=== PATIENT | female | born 1985 | race African-American/Black ===

== ENCOUNTER 2018-09-14 16:30 | Emergency (ER) | payer OTHER ==
[2018-09-14 16:37] VITALS: BP 121/66
[2018-09-14] MEDS ORDERED: METHOCARBAMOL 750 MG TABLET PO ONE (18:02)
--- NOTE | 2018-09-14 18:22 | ER Document Report ---
HPI - HPI Time Seen by Provider: 09/14/18 17:20 Pain Level: 5 Notes: Patient is a 33-year-old female who presents with multiple complaints after she states she fell at work yesterday. Patient reports she was pushing a heavy cart when the wheel of the cart broke causing the cart to fall on top of her. She reports that she has stiffness in her upper abdomen, left thigh and bilateral shins. She reports that she was seen by her employer's employee health department immediately after the fall. She states that she is able to ambulate without difficulty however she feels that she is having symptoms of bruising. - REPRODUCTIVE Reproductive: DENIES: : - MUSCULOSKELETAL Musculoskeletal: REPORTS: Extremity pain Past Medical History - General Information source: Patient - Social History Smoking Status: Never Smoker Chew tobacco use (# tins/day): No Frequency of alcohol use: None Drug Abuse: None Family History: None Patient has suicidal ideation: No Patient has homicidal ideation: No - Medical History Medical History: Negative Renal/ Medical History: Denies: Hx Peritoneal Dialysis Surgical Hx: Negative - Immunizations Immunizations up to date: Yes Vertical Provider Document - CONSTITUTIONAL Notes: PHYSICAL EXAMINATION: GENERAL: Well-appearing, well-nourished and in no acute distress. HEAD: Atraumatic, normocephalic. EYES: Pupils equal round extraocular movements intact, conjunctiva are normal. ENT: Nares patent NECK: Normal range of motion LUNGS: No respiratory distress Musculoskeletal: Normal range of motion NEUROLOGICAL: Normal speech, normal gait. PSYCH: Normal mood, normal affect. SKIN: Warm, Dry, normal turgor, no rashes or lesions noted. Large bruise noted to patient's left anterior thigh. - INFECTION CONTROL TRAVEL OUTSIDE OF THE [place] IN LAST 30 DAYS: No Course - Re-evaluation Re-evalutation: Patient has a large bruise noted to her left thigh otherwise physical examination is unremarkable. Patient reports that she feels "all bruised up". Patient states that her muscles feel tight. I do not feel that any imaging is indicated at this time as patient is moving all extremities without difficulty. Patient will be encouraged to take [id number] pain medications. Patient asking for muscle relaxer to be prescribed. I will prescribe her Robaxin. Work note given. - Vital Signs Vital signs: Temp Pulse Resp BP Pulse Ox 98.4 F 84 16 121/66 97 09/14/18 16:36 09/14/18 16:36 09/14/18 16:36 09/14/18 16:36 09/14/18 16:36 Discharge - Discharge Clinical Impression: Contusion Qualifiers: Encounter type: initial encounter Contusion area: thigh Laterality: left Qualified Code(s): S70.12XA - Contusion of left thigh, initial encounter Condition: Stable Disposition: HOME, SELF-CARE Additional Instructions: Contusion Your injury has resulted in a contusion -- a crushing of the deep tissues. No injury to important structures was detected during the physician's exam. Contusions vary in the amount of pain they cause, and in the length of time required for healing. Typically, the area will become bruised, and will remain painful to touch for two or three weeks. However, most patients are back to working and playing within a few days. After the initial period of rest and cold-packs, your symptoms (together with the doctor's recommendations) will determine how rapidly you can get back to full activity. Usually this means "do what feels okay, but don't do things that hurt." If re-examination was recommended, it's important to follow up as instructed. Call the doctor or return any time if pain increases, if swelling becomes severe, if you develop numbness or weakness in an injured extremity, or if any other alarming symptoms occur. Ice Apply ice packs frequently against the painful area. Many different schedules are recommended, such as "20 minutes on, 20 minutes off" or "one hour ice, two hours rest." If you need to work, you may need to go longer between ice treatments. You should plan to have the area ice packed AT LEAST one-fourth of the time. The ice should be applied over the wrap, tape, or splint, or over a layer of cloth -- not directly against the skin. Some ice bags have a built-in cloth and can be put directly on the skin. Your injured part should be elevated as much as possible over the next 48 hours. Try to keep the injury above the level of the heart. Avoid use of the injured area. Elevation and rest will decrease the swelling. Ibuprofen Ibuprofen is an excellent, safe drug for pain control. In addition, it has potent antiinflammatory effects which are beneficial, especially in the treatment of injuries, arthritis, or tendonitis. It's best to take ibuprofen with food. Persons with ulcer disease or allergy to aspirin should notify their physician of this before taking ibuprofen. Take the medication exactly as prescribed. Don't take additional doses unless instructed to do so by your doctor. If you develop wheezing, shortness of breath, hives, faintness, stomach pain, vomiting, or dark black stools, return for re-evaluation at once. The x-rays were negative for any fracture or dislocation. Please take ibuprofen [id number] or your meloxicam as directed to help with pain and inflammation. Take the muscle relaxer as prescribed. Prescriptions: Methocarbamol [Robaxin 750 mg Tablet] 750 mg PO QID #30 tablet Forms: Return to Work Referrals: [facility] [Primary Care Provider] - Follow up as needed
== END 2018-09-14 18:44 | disposition home or self-care (01) ==
LOC: ER 16:30
DX: S70.12XA Contusion of left thigh, initial encounter (principal); R10.10 Upper abdominal pain, unspecified; W22.8XXA Striking against or struck by other objects, initial encounter
CPT/HCPCS: 99282; J3490

== ENCOUNTER 2018-12-01 07:49 | Emergency (ER) | payer OTHER, MEDICAID ==
[2018-12-01 10:43] LABS: ABSOLUTE EOSINOPHILS # (AUTO) 0.1 10^3/uL (0.0-0.6); ABSOLUTE LYMPHOCYTES (AUTO) 1.5 10^3/uL (0.5-4.7); ABSOLUTE MONOCYTES (AUTO) 0.6 10^3/uL (0.1-1.4); ABSOLUTE NEUT (AUTO) 10.7 10^3/uL (1.7-8.2); BASOPHILS % (AUTO) 0.3 % (0-2); EOSINOPHILS % (AUTO) 0.4 % (0-6); HEMATOCRIT 34.1 % (36.0-47.0); HEMOGLOBIN 11.4 g/dL (12.0-15.5); LYMPHOCYTES % (AUTO) 11.5 % (13-45); MEAN CORPUSCULAR HEMOGLOBIN 29.3 pg (27.0-33.4); MEAN CORPUSCULAR HGB CONC 33.4 g/dL (32.0-36.0); MEAN CORPUSCULAR VOLUME 88 fl (80-97); MONOCYTES % (AUTO) 4.5 % (3-13); PLATELET COUNT 333 10^3/uL (150-450); RED BLOOD COUNT 3.88 10^6/uL (3.72-5.28); RED CELL DISTRIBUTION WIDTH 13.8 % (11.5-14.0); SEGMENTED NEUTROPHILS % (AUTO) 83.3 % (42-78); TOTAL CELLS COUNTED % (AUTO) 100 %; WHITE BLOOD COUNT 12.9 10^3/uL (4.0-10.5)
--- NOTE | 2018-12-01 10:44 | ER Document Report ---
ED General - General Chief Complaint: Vag Bleeding, +preg <12wks Stated Complaint: SPOTTING/ABDOMINAL PAIN Time Seen by Provider: 12/01/18 10:33 Primary Care Provider: MEKA LE [NO LOCAL MD] - Follow up in 1 week Mode of Arrival: Ambulatory Information source: Patient Notes: Patient presents this morning with complaints of spotting. Patient reports she is approximately 8 weeks . Reports when she wiped she noticed blood on the tissue paper twice this morning. Denies other symptoms such as fever or diarrhea. Denies abdominal pain although she reports when she stands up she will have a sharp pain when she walks in her right lower quad. Patient also reports she is been vomiting but that is normal for her morning . She is G4, P3. Denies trauma. Reports that she feels fine. TRAVEL OUTSIDE OF THE [place] IN LAST 30 DAYS: No - HPI Onset: This morning Onset/Duration: Sudden Quality of pain: No pain Severity: None Pain Level: Denies Associated symptoms: None Exacerbated by: Denies Relieved by: Denies Similar symptoms previously: No Recently seen / treated by doctor: No - Related Data Allergies/Adverse Reactions: No Known Allergies Allergy (Verified 09/14/18 16:34) Past Medical History - General Information source: Patient Last Menstrual Period: 09/30/18 - Social History Smoking Status: Current Every Day Smoker Chew tobacco use (# tins/day): No Frequency of alcohol use: None Drug Abuse: None Occupation: [employer] [place] Lives with: Family Family History: None Patient has suicidal ideation: No Patient has homicidal ideation: No - Medical History Medical History: Negative Renal/ Medical History: Denies: Hx Peritoneal Dialysis Psychiatric Medical History: Reports: Hx Depression Surgical Hx: Negative - Immunizations Immunizations up to date: Yes Review of Systems - Review of Systems Notes: Review HPI for review of systems., All other systems negative Physical Exam - Vital signs Vitals: Temp Pulse Resp BP Pulse Ox 98.3 F 86 20 124/71 99 12/01/18 07:54 12/01/18 07:54 12/01/18 07:54 12/01/18 07:54 12/01/18 07:54 - Notes Notes: PHYSICAL EXAMINATION: GENERAL: Well-appearing and in no acute distress HEAD: Atraumatic, normocephalic. EYES: extraocular movements intact, sclera anicteric, conjunctiva are normal. ENT: nares patent, Moist mucous membranes. NECK: Normal range of motion, supple without lymphadenopathy LUNGS: CTAB and equal. No wheezes rales or rhonchi. HEART: Regular rate and rhythm without murmurs ABDOMEN: Soft, round, no pain on palpation, no tenderness. No guarding, no rebou nd BACK: Denies back pain EXTREMITIES: Normal range of motion, NEUROLOGICAL: Cranial nerves grossly intact. PSYCH: Normal mood, normal affect. SKIN: Warm, Dry, normal turgor, no rashes or lesions noted Course - Re-evaluation Re-evalutation: 12/01/18 10:44 Labs still pending. Patient was instructed on ultrasound ordered. Patient is asking if she will be out of here within the next 20 minutes. I instructed her that she would not. Patient was advised of risk of bleeding without diagnosis. She verbalized understanding. Patient is deciding whether she will stay or not. Nurse aware. 12/01/18 Labs were unremarkable ultrasound showed a 9-week 2-day intrauterine . Patient was instructed on ultrasound reports also instructed on the importance of follow-up for hCG on Tuesday. She verbalized understanding to all information denies vaginal bleeding at this time. Denies abdominal pain. Discharged home. She has an appointment with her INSTRUCTIONAL WRITER on December 11. Dictation of this chart was performed using voice recognition software; therefore, there may be some unintended grammatical errors. - Vital Signs Vital signs: Temp Pulse Resp BP Pulse Ox 98.4 F 86 15 107/55 L 99 12/01/18 12:53 12/01/18 12:53 12/01/18 12:53 12/01/18 12:53 12/01/18 12:53 - Laboratory Result Diagrams: 12/01/18 10:30 12/01/18 10:30 Laboratory results interpreted by me: 12/01/18 12/01/18 10:30 10:30 WBC 12.9 H Hgb 11.4 L Hct 34.1 L Seg Neutrophils % 83.3 H Lymphocytes % 11.5 L Absolute Neutrophils 10.7 H Beta HCG, Quant 582005.00 H - Diagnostic Test Radiology reviewed: Image reviewed, Reports reviewed Discharge - Discharge Clinical Impression: , Vaginal bleeding Condition: Stable Disposition: HOME, SELF-CARE Additional Instructions: *You have been evaluated for vaginal bleeding *Your ultrasound shows that you have a 9 weeks 2 days living intrauterine . *Follow-up on Tuesday, December 03 for repeat hCG. Call [phone] Tuesday through 01-21 for results. *Monitor the bleeding *Follow up with your WAREHOUSE RECEIVING CLERK as scheduled *Avoid sexual intercourse until follow up *Return to ED for worsening condition, changes, needs Forms: Follow-Up Laboratory Testing Referrals: [facility] [NO LOCAL MD] - Follow up in 1 week
[2018-12-01 11:04] LABS: ALANINE AMINOTRANSFERASE 28 U/L (9-52); ALBUMIN 3.8 g/dL (3.5-5.0); ALKALINE PHOSPHATASE 84 U/L (38-126); ANION GAP 8 (5-19); ASPARTATE AMINO TRANSFERASE 19 U/L (14-36); BILIRUBIN,DIRECT 0.2 mg/dL (0.0-0.4); BILIRUBIN,TOTAL 0.4 mg/dL (0.2-1.3); BLOOD UREA NITROGEN 11 mg/dL (7-20); CALCIUM 9.6 mg/dL (8.4-10.2); CARBON DIOXIDE 26 mmol/L (22-30); CHLORIDE 103 mmol/L (98-107); GLUCOSE 91 mg/dL (75-110); POTASSIUM 3.8 mmol/L (3.6-5.0); SODIUM 137.2 mmol/L (137-145); TOTAL PROTEIN 6.8 g/dL (6.3-8.2)
--- NOTE | 2018-12-01 12:04 | RADIOLOGY REPORT (SQ) ---
EXAM DESCRIPTION: U/S OB TRANSVAGINAL W/O DOP COMPLETED DATE/TIME: 12/01/2018 11:53 am REASON FOR STUDY: preg, vag bleed COMPARISON: None. TECHNIQUE: Transvaginal static and realtime grayscale images acquired of the pelvis. Additional gonzales cted spectral and color Doppler images recorded. All images stored on PACs. bHCG: Pending at time of dictation. CLINICAL DATES: 8 weeks 6 days. LIMITATIONS: None. FINDINGS: FETUS: Single Living intrauterine . ULTRASOUND EGA: 9 weeks 2 days. ULTRASOUND YURIDIA: 07/04/2019 EFW: Not applicable less than 20 weeks. CRL: 2.48 cm. FHR: 180 beats per minute. SURVEY: Too early to assess. AMNIOTIC FLUID: Adequate amount. PLACENTA: Not yet developed due to early gestation. SUBCHORIONIC BLEED: No. SIZE OF BLEED: Not applicable. UTERUS: No masses. No anomalies. CERVICAL LENGTH: 3.1 cm. Closed. RIGHT ADNEXA: Ovary not identified due to poor acoustical window. No adnexal free fluid. No adnexal masses. LEFT ADNEXA: Normal ovary with normal vascular flow. No adnexal free fluid. No adnexal masses. FREE FLUID: There is a trace amount of free fluid in the cul de sac. OTHER: No other significant finding. IMPRESSION: LIVING INTRAUTERINE . EGA 9 WEEKS 2 DAYS. Trimester of : First - 0 to 13 weeks. TECHNICAL DOCUMENTATION: JOB ID: [id number] [employer]- All Rights Reserved rev Reading location - IP/workstation name: [email or web address]
[2018-12-01] MEDS ORDERED: ONDANSETRON 4 MG TAB.RAPDIS PO ONE (13:04)
[2018-12-01 13:09] VITALS: BP 107/55
== END 2018-12-01 13:09 | disposition home or self-care (01) ==
LOC: ER 07:49
DX: O20.9 Hemorrhage in early pregnancy, unspecified (principal); O21.9 Vomiting of pregnancy, unspecified; O26.891 Other specified pregnancy related conditions, first trimester; R10.31 Right lower quadrant pain; O99.331 Smoking (tobacco) complicating pregnancy, first trimester; Z3A.09 9 weeks gestation of pregnancy
CPT/HCPCS: 99284; 86900; 86901; 36415; 84702; 85025; 80053; 76817; S0119

== ENCOUNTER 2018-12-25 13:34 | Emergency (ER) | payer OTHER, MEDICAID ==
[2018-12-25] MEDS ORDERED: RINGERS SOLUTION,LACTATED 1,000 ML IV ONE (14:10)
[2018-12-25] MEDS ORDERED: PYRIDOXINE HCL INJ 100 MG/1 ML VIAL IM ONE (14:11)
[2018-12-25] MEDS ORDERED: METOCLOPRAMIDE HCL 10 MG TABLET PO ONE (14:11)
--- NOTE | 2018-12-25 14:13 | ER Document Report ---
ED Medical Screen (RME) - General Chief Complaint: Vomiting Stated Complaint: VOMITING Time Seen by Provider: 12/25/18 14:07 Primary Care Provider: FARIBA BAEZ DO [Primary Care Provider] - Follow up as needed Mode of Arrival: Ambulatory Information source: Patient Notes: 33-year-old female presents to ED for complaint of nausea and vomiting all weekend. She is 12 weeks last ultrasound was about 2 weeks ago she is 4 para 3. She states she has had nausea and vomiting and needed to come into the emergency room to get IV fluids with her first 3 pregnancies. States she smokes about 3 cigarettes a day works at [employer] and lives with her significant other and children. She states other than her nausea and vomiting with she has no other medical history. Patient is alert and oriented respirations regular and unlabored speaking in full sentences. I have written an order for vitamin B6 IM and Reglan as well as IV fluids. I have greeted and performed a rapid initial assessment of this patient. A comprehensive ED assessment and evaluation of the patient, analysis of test results and completion of medical decision making process will be conducted by an additional ED providers. Dictation of this chart was performed using voice recognition software; therefore, there may be some unintended grammatical errors. TRAVEL OUTSIDE OF THE [place] IN LAST 30 DAYS: No - Related Data Allergies/Adverse Reactions: No Known Allergies Allergy (Verified 12/25/18 13:35) Past Medical History Renal/ Medical History: Denies: Hx Peritoneal Dialysis Psychiatric Medical History: Reports: Hx Depression - Immunizations Immunizations up to date: Yes Physical Exam - Vital signs Vitals: Temp Pulse Resp BP Pulse Ox 98.0 F 113 H 20 144/69 H 97 12/25/18 13:40 12/25/18 13:40 12/25/18 13:40 12/25/18 13:40 12/25/18 13:40 Course - Vital Signs Vital signs: Temp Pulse Resp BP Pulse Ox 98.0 F 113 H 20 144/69 H 97 12/25/18 13:40 12/25/18 13:40 12/25/18 13:40 12/25/18 13:40 12/25/18 13:40 Doctor's Discharge - Discharge Referrals: FARIBA BAEZ DO [Primary Care Provider] - Follow up as needed
--- NOTE | 2018-12-25 14:54 | ER Document Report ---
Addendum entered and electronically signed by VIOLET RUSH PA-C 12/25/18 18:16: Discharge - Discharge Clinical Impression: Hyperemesis gravidarum, Dehydration, Nausea & vomiting Condition: Stable Disposition: HOME, SELF-CARE Instructions: Hyperemesis Gravidarum ([facility]) Additional Instructions: FOLLOW UP WITH OB TOMORROW. TAKE MEDICINE PRESCRIBED. RETURN IF WORSE. PUSH FLUIDS. BLAND DIET. Prescriptions: Doxylamine Succinate/Vit B6 [Ralph Boswell 10-10 mg Tablet] 1 each PO BID #30 tablet. Referrals: FARIBA BAEZ DO [Primary Care Provider] - Follow up as needed Original Note: ED General - General Chief Complaint: Vomiting Stated Complaint: VOMITING Time Seen by Provider: 12/25/18 14:07 Primary Care Provider: FARIBA BAEZ DO [Primary Care Provider] - Follow up as needed Mode of Arrival: Ambulatory TRAVEL OUTSIDE OF THE [place] IN LAST 30 DAYS: No - HPI Notes: 33-year-old female, G4, P3 12 weeks , to the emergency department with complaints of nausea and vomiting that has gotten progressively worse over the weekend. States that she has a history of hyperemesis gravidarum and this feels similar. States she is unable to hold any food or liquids down. In prior she has had to come to the emergency department several times for IV fluids. She states that she is seen at [facility]. Has had a confirmed IUP with this by ultrasound 2 weeks ago. She denies any vaginal bleeding. She denies any pelvic pain. She denies any urinary complaints, vaginal discharge, fevers, chills. She states that her SENIOR NET WEB DEVELOPER did write her for antiemetics which she took to [facility]. [facility] did not have the medicine and has not called her to say that the medicine has come in. That was 2 weeks ago. - Related Data Allergies/Adverse Reactions: No Known Allergies Allergy (Verified 12/25/18 13:35) Past Medical History - General Information source: Patient - Social History Smoking Status: Current Every Day Smoker Frequency of alcohol use: None Drug Abuse: None Family History: None Patient has suicidal ideation: No Patient has homicidal ideation: No Renal/ Medical History: Denies: Hx Peritoneal Dialysis Psychiatric Medical History: Reports: Hx Depression - Immunizations Immunizations up to date: Yes Review of Systems - Review of Systems Constitutional: Malaise. denies: Chills, Fever EENT: No symptoms reported Cardiovascular: denies: Chest pain, Palpitations, Dizziness, Lightheaded Respiratory: denies: Cough, Short of breath Gastrointestinal: Nausea, Vomiting. denies: Abdominal pain, Diarrhea Genitourinary: No symptoms reported Female Genitourinary: . denies: Heavy/abnormal periods, Irregular period, Vaginal discharge, Vaginal bleeding, Painful intercourse Musculoskeletal: No symptoms reported Skin: No symptoms reported Hematologic/Lymphatic: No symptoms reported Neurological/Psychological: No symptoms reported Physical Exam - Vital signs Vitals: Temp Pulse Resp BP Pulse Ox 98.0 F 113 H 20 144/69 H 97 12/25/18 13:40 12/25/18 13:40 12/25/18 13:40 12/25/18 13:40 12/25/18 13:40 Interpretation: Hypertensive, Tachycardic - General General appearance: Appears well In distress: Mild - One episode of dry heaving while in the room - HEENT Head: Normocephalic, Atraumatic Eyes: Normal Pupils: PERRL - Respiratory Respiratory status: No respiratory distress Chest status: Nontender Breath sounds: Normal Chest palpation: Normal - Cardiovascular Rhythm: Regular Heart sounds: Normal auscultation Murmur: No - Abdominal Inspection: Normal Distension: No distension Bowel sounds: Normal Tenderness: Nontender Organomegaly: No organomegaly - Back Back: Normal, Nontender - Extremities General upper extremity: Normal inspection, Nontender, Normal color, Normal ROM, Normal temperature General lower extremity: Normal inspection, Nontender, Normal color, Normal ROM, Normal temperature, Normal weight bearing. No: Mia's sign - Neurological Neuro grossly intact: Yes Cognition: Normal Orientation: AAOx4 Lakhwinder Coma Scale Eye Opening: Spontaneous [place] Coma Scale Verbal: Oriented Lakhwinder Coma Scale Motor: Obeys Commands Lakhwinder Coma Scale Total: 15 Speech: Normal Motor strength normal: LUE, RUE, LLE, RLE Sensory: Normal - Psychological Associated symptoms: Normal affect, Normal mood - Skin Skin Temperature: Warm Skin Moisture: Dry Skin Color: Normal Course - Re-evaluation Re-evalutation: 12/25/18 18:09 patient has done well here in the ER tonight. Noted UA which does illustrate dehydration. She has had a couple episodes of dry heaving at her arrival, but after medicine she has done well. She has been eating and feeling better. No further episodes of vomiting. Suspect that the WBC of 13 is related to her vomiting. Will discharge home with Ralph. patient agrees with the plan. - Vital Signs Vital signs: Temp Pulse Resp BP Pulse Ox 98.0 F 84 16 99/52 L 100 12/25/18 13:40 12/25/18 17:18 12/25/18 17:18 12/25/18 17:18 12/25/18 17:18 - Laboratory Result Diagrams: 12/25/18 14:44 12/25/18 14:44 Laboratory results interpreted by me: 12/25/18 12/25/18 12/25/18 14:44 14:44 15:54 WBC 13.6 H Hgb 11.5 L Hct 34.8 L Seg Neutrophils % 85.4 H Lymphocytes % 11.1 L Absolute Neutrophils 11.6 H Sodium 135.9 L AST 38 H Beta HCG, Quant 504067.00 H Urine Protein 30 H Urine Ketones 300 H Urine Bilirubin SMALL H Urine Urobilinogen 2.0 H - Transfer of Care Notes: 12/25/18 18:11 Impression: Hyperemesis gravidarum, dehydration. Patient tolerating PO here. Has been given two bags of fluids and has done well. Will discharge home and have her follow with her OB tomorrow. No vaginal bleeding, she has a non tender abdomen on repeat abdominal exam upon discharge. Patient agrees with the plan. Discharge - Discharge Clinical Impression: Hyperemesis gravidarum, Dehydration, Nausea & vomiting Condition: Stable Disposition: HOME, SELF-CARE Instructions: Hyperemesis Gravidarum ([facility]) Additional Instructions: FOLLOW UP WITH OB TOMORROW. TAKE MEDICINE PRESCRIBED. RETURN IF WORSE. PUSH FLUIDS. BLAND DIET. Prescriptions: Doxylamine Succinate/Vit B6 [Ralph Boswell 10-10 mg Tablet] 1 each PO BID #30 tablet. Referrals: FARIBA BAEZ DO [Primary Care Provider] - Follow up as needed
[2018-12-25 15:18] LABS: ALANINE AMINOTRANSFERASE 40 U/L (9-52); ALKALINE PHOSPHATASE 90 U/L (38-126); ANION GAP 9 (5-19); ASPARTATE AMINO TRANSFERASE 38 U/L (14-36); BILIRUBIN,DIRECT 0.3 mg/dL (0.0-0.4); BILIRUBIN,TOTAL 0.5 mg/dL (0.2-1.3); BLOOD UREA NITROGEN 14 mg/dL (7-20); CALCIUM 9.4 mg/dL (8.4-10.2); CARBON DIOXIDE 24 mmol/L (22-30); CHLORIDE 103 mmol/L (98-107); GLUCOSE 86 mg/dL (75-110); SODIUM 135.9 mmol/L (137-145); TOTAL PROTEIN 7.2 g/dL (6.3-8.2)
[2018-12-25 15:21] LABS: POTASSIUM 3.9 mmol/L (3.6-5.0)
[2018-12-25 16:11] LABS: APPEARANCE,URINE CLEAR; BILIRUBIN,URINE SMALL (NEGATIVE); COLOR,URINE AMBER; GLUCOSE, URINE NEGATIVE (NEGATIVE); KETONES,URINE 300 mg/dL (NEGATIVE); LEUKOCYTE ESTERASE,URINE NEGATIVE (NEGATIVE); NITRITE,URINE NEGATIVE (NEGATIVE); PROTEIN,URINE 30 mg/dL (NEGATIVE)
[2018-12-25 16:19] LABS: URINE SPECIFIC GRAVITY 1.031
[2018-12-25 16:37] LABS: ABSOLUTE LYMPHOCYTES (AUTO) 1.5 10^3/uL (0.5-4.7); ABSOLUTE MONOCYTES (AUTO) 0.4 10^3/uL (0.1-1.4); ABSOLUTE NEUT (AUTO) 11.6 10^3/uL (1.7-8.2); BASOPHILS % (AUTO) 0.2 % (0-2); EOSINOPHILS % (AUTO) 0.1 % (0-6); HEMATOCRIT 34.8 % (36.0-47.0); HEMOGLOBIN 11.5 g/dL (12.0-15.5); LYMPHOCYTES % (AUTO) 11.1 % (13-45); MEAN CORPUSCULAR HEMOGLOBIN 29.3 pg (27.0-33.4); MEAN CORPUSCULAR HGB CONC 33.1 g/dL (32.0-36.0); MEAN CORPUSCULAR VOLUME 89 fl (80-97); MONOCYTES % (AUTO) 3.2 % (3-13); PLATELET COUNT 359 10^3/uL (150-450); RED BLOOD COUNT 3.93 10^6/uL (3.72-5.28); RED CELL DISTRIBUTION WIDTH 13.9 % (11.5-14.0); SEGMENTED NEUTROPHILS % (AUTO) 85.4 % (42-78); TOTAL CELLS COUNTED % (AUTO) 100 %; WHITE BLOOD COUNT 13.6 10^3/uL (4.0-10.5)
[2018-12-25] MEDS ORDERED: NORMAL SALINE 1000 ML 1,000 ML IV ONE (16:42)
[2018-12-25] MEDS ORDERED: ONDANSETRON HCL INJ/PF 4 MG/2 ML SDV IV ONE (16:44)
[2018-12-25 19:11] VITALS: BP 112/47
== END 2018-12-25 19:22 | disposition home or self-care (01) ==
LOC: ER 13:34
DX: O21.1 Hyperemesis gravidarum with metabolic disturbance (principal); O99.331 Smoking (tobacco) complicating pregnancy, first trimester; F17.200 Nicotine dependence, unspecified, uncomplicated; Z3A.12 12 weeks gestation of pregnancy
CPT/HCPCS: 99284; 96361; 96374; 96375; 36415; 84702; 85025; 80053; 81001; J3415; J2405; J7030; J7120

== ENCOUNTER 2019-03-06 10:58 | Emergency (ER) | payer OTHER, MEDICAID ==
[2019-03-06 11:08] VITALS: BP 124/77
[2019-03-06] MEDS ORDERED: ACETAMINOPHEN 325 MG TABLET PO ONE (11:32)
[2019-03-06] MEDS ORDERED: PROMETHAZINE HCL 25 MG TABLET PO ONE (11:32)
--- NOTE | 2019-03-06 11:34 | ER Document Report ---
ED Medical Screen (RME) - General Chief Complaint: Abdominal Pain Stated Complaint: VOMITING/NAUSEA Time Seen by Provider: 03/06/19 11:28 Primary Care Provider: FARIBA BAEZ DO [Primary Care Provider] - Follow up as needed Mode of Arrival: Ambulatory Information source: Patient Notes: This 34-year-old female who is 22 weeks G4, P3 presents emergency department with complaints of vomiting all the time. She reports she is vomited this whole . She was at work today and vomited and they stressed her out. She reports she has a history of PTSD. She now complains of lower back pain. Denies pain with void. Reports her [employer] REVENUE OFFICER has given her Phenergan. Last time she took Phenergan was last night. She denies vaginal discharge. She denies abdominal cramping. She denies vaginal bleeding. Dictation of this chart was performed using voice recognition software; therefore, there may be some unintended grammatical errors. I have greeted and performed a rapid initial assessment of this patient. A comprehensive ED assessment and evaluation of the patient, analysis of test results and completion of the medical decision making process will be conducted by additional ED providers. TRAVEL OUTSIDE OF THE [place] IN LAST 30 DAYS: No - Related Data Allergies/Adverse Reactions: No Known Allergies Allergy (Verified 03/06/19 10:58) Past Medical History - Social History Frequency of alcohol use: None Drug Abuse: None Renal/ Medical History: Denies: Hx Peritoneal Dialysis Psychiatric Medical History: Reports: Hx Depression - Immunizations Immunizations up to date: Yes Physical Exam - Vital signs Vitals: Temp Pulse Resp BP Pulse Ox 98.5 F 100 18 124/77 96 03/06/19 11:08 03/06/19 11:08 03/06/19 11:08 03/06/19 11:08 03/06/19 11:08 Course - Vital Signs Vital signs: Temp Pulse Resp BP Pulse Ox 98.5 F 100 18 124/77 96 03/06/19 11:08 03/06/19 11:08 03/06/19 11:08 03/06/19 11:08 03/06/19 11:08 Doctor's Discharge - Discharge Referrals: FARIBA BAEZ DO [Primary Care Provider] - Follow up as needed
[2019-03-06 11:52] LABS: ABSOLUTE BASOPHILS # (AUTO) 0.1 10^3/uL (0.0-0.2); ABSOLUTE EOSINOPHILS # (AUTO) 0.1 10^3/uL (0.0-0.6); ABSOLUTE LYMPHOCYTES (AUTO) 1.4 10^3/uL (0.5-4.7); ABSOLUTE MONOCYTES (AUTO) 0.4 10^3/uL (0.1-1.4); ABSOLUTE NEUT (AUTO) 14.2 10^3/uL (1.7-8.2); BASOPHILS % (AUTO) 0.5 % (0-2); EOSINOPHILS % (AUTO) 0.3 % (0-6); HEMATOCRIT 32.3 % (36.0-47.0); HEMOGLOBIN 10.8 g/dL (12.0-15.5); LYMPHOCYTES % (AUTO) 8.6 % (13-45); MEAN CORPUSCULAR HEMOGLOBIN 28.8 pg (27.0-33.4); MEAN CORPUSCULAR HGB CONC 33.4 g/dL (32.0-36.0); MEAN CORPUSCULAR VOLUME 86 fl (80-97); MONOCYTES % (AUTO) 2.7 % (3-13); PLATELET COUNT 330 10^3/uL (150-450); RED BLOOD COUNT 3.75 10^6/uL (3.72-5.28); RED CELL DISTRIBUTION WIDTH 15.4 % (11.5-14.0); SEGMENTED NEUTROPHILS % (AUTO) 87.9 % (42-78); TOTAL CELLS COUNTED % (AUTO) 100 %; WHITE BLOOD COUNT 16.1 10^3/uL (4.0-10.5)
[2019-03-06 12:09] LABS: APPEARANCE,URINE SLIGHTLY-CLOUDY; BILIRUBIN,URINE NEGATIVE (NEGATIVE); COLOR,URINE AMBER; GLUCOSE, URINE NEGATIVE (NEGATIVE); KETONES,URINE 20 mg/dL (NEGATIVE); LEUKOCYTE ESTERASE,URINE NEGATIVE (NEGATIVE); NITRITE,URINE NEGATIVE (NEGATIVE); PROTEIN,URINE 30 mg/dL (NEGATIVE); URINE SPECIFIC GRAVITY 1.038
[2019-03-06 12:14] LABS: ALBUMIN 3.8 g/dL (3.5-5.0); ALKALINE PHOSPHATASE 90 U/L (38-126); ANION GAP 9 (5-19); ASPARTATE AMINO TRANSFERASE 41 U/L (14-36); BILIRUBIN,DIRECT 0.1 mg/dL (0.0-0.4); BILIRUBIN,TOTAL 0.3 mg/dL (0.2-1.3); BLOOD UREA NITROGEN 13 mg/dL (7-20); CARBON DIOXIDE 24 mmol/L (22-30); CHLORIDE 102 mmol/L (98-107); GLUCOSE 116 mg/dL (75-110); POTASSIUM 3.7 mmol/L (3.6-5.0); TOTAL PROTEIN 6.7 g/dL (6.3-8.2)
[2019-03-06] MEDS ORDERED: NORMAL SALINE 1000 ML 1,000 ML IV ONE (13:30)
[2019-03-06] MEDS ORDERED: METOCLOPRAMIDE HCL INJ/PF 10 MG/2 ML SDV IV ONE (13:30)
--- NOTE | 2019-03-06 13:42 | ER Document Report ---
ED General - General Chief Complaint: Abdominal Pain Stated Complaint: VOMITING/NAUSEA Time Seen by Provider: 03/06/19 11:28 Primary Care Provider: FARIBA BAEZ DO [Primary Care Provider] - Follow up as needed Mode of Arrival: Ambulatory Information source: Patient TRAVEL OUTSIDE OF THE [place] IN LAST 30 DAYS: No - HPI Notes: Patient comes in complaining of vomiting abdominal pain and anxiety. She states she has been vomiting throughout her and she continues to vomit. She states today she is unable to keep down water. She states at work today she vomited several times and urinated on herself while vomiting. She states the people at work Trying to tell her to continue work which made her upset and caused her to have an anxiety attack. She also states for the last 2 to 3 days she has had lower abdominal cramping pain that feels like contractions. It is intermittent. Nothing makes it better or worse. It does not radiate. It is greater on the right lower side. She denies any vaginal discharge or bleeding. She is not concerned about sexually transmitted disease. She is had no fevers. No problems with stool. - Related Data Allergies/Adverse Reactions: No Known Allergies Allergy (Verified 03/06/19 10:58) Past Medical History - General Information source: Patient - Social History Smoking Status: Current Every Day Smoker Frequency of alcohol use: None Drug Abuse: None Family History: None Patient has suicidal ideation: No Patient has homicidal ideation: No Renal/ Medical History: Denies: Hx Peritoneal Dialysis Psychiatric Medical History: Reports: Hx Depression - Immunizations Immunizations up to date: Yes Review of Systems - Review of Systems Constitutional: Malaise, Weakness Cardiovascular: denies: Chest pain, Palpitations Respiratory: denies: Cough, Short of breath Gastrointestinal: Abdominal pain, Nausea, Vomiting -: Yes All other systems reviewed and negative Physical Exam - Vital signs Vitals: Temp Pulse Resp BP Pulse Ox 98.5 F 100 18 124/77 96 03/06/19 11:08 03/06/19 11:08 03/06/19 11:08 03/06/19 11:08 03/06/19 11:08 Interpretation: Normal - General General appearance: Appears well, Alert - HEENT Head: Normocephalic, Atraumatic Eyes: Normal Pupils: PERRL - Respiratory Respiratory status: No respiratory distress Chest status: Nontender Breath sounds: Normal Chest palpation: Normal - Cardiovascular Rhythm: Regular Heart sounds: Normal auscultation Murmur: No - Abdominal Inspection: Normal Distension: No distension Bowel sounds: Normal Tenderness: Tender - Patient has some mild to moderate tenderness to palpation of the right lower quadrant. No masses are appreciated. She does have a gravid uterus that other than the right lower aspect seems nontender. She does not have surgical abdominal signs such as rebound or guarding. She definitely does not have peritonitis on exam. Organomegaly: No organomegaly - Back Back: Normal, Nontender - Extremities General upper extremity: Normal inspection, Nontender, Normal color, Normal ROM, Normal temperature General lower extremity: Normal inspection, Nontender, Normal color, Normal ROM, Normal temperature, Normal weight bearing. No: Mia's sign - Neurological Neuro grossly intact: Yes Cognition: Normal Orientation: AAOx4 [place] Coma Scale Eye Opening: Spontaneous [place] Coma Scale Verbal: Oriented [place] Coma Scale Motor: Obeys Commands [place] Coma Scale Total: 15 Speech: Normal Motor strength normal: LUE, RUE, LLE, RLE Sensory: Normal - Psychological Associated symptoms: Normal affect, Normal mood - Skin Skin Temperature: Warm Skin Moisture: Dry Skin Color: Normal Course - Re-evaluation Re-evalutation: 03/06/19 13:38 Patient presents with vomiting and abdominal pain. She states abdominal pain feels like contractions. However this pain is in the right lower quadrant and patient does have a white blood cell count of 16.8. I feel that appendicitis is unlikely but cannot be ruled out at this time. I think the patient warrants evaluation on the obstetrics floor with serial exams. She definitely does not h ave peritonitis or a surgical abdomen at this point. No evidence of urinary tract infection. - Vital Signs Vital signs: Temp Pulse Resp BP Pulse Ox 98.5 F 100 18 124/77 96 03/06/19 11:08 03/06/19 11:08 03/06/19 11:08 03/06/19 11:08 03/06/19 11:08 - Laboratory Result Diagrams: 03/06/19 11:40 03/06/19 11:40 Laboratory results interpreted by me: 03/06/19 03/06/19 03/06/19 11:40 11:40 11:40 WBC 16.1 H Hgb 10.8 L Hct 32.3 L RDW 15.4 H Lymph % (Auto) 8.6 L [place] % (Auto) 2.7 L Absolute Neuts (auto) 14.2 H Seg Neutrophils % 87.9 H Sodium 135.1 L Glucose 116 H AST 41 H Urine Protein 30 H Urine Ketones 20 H Urine Urobilinogen 4.0 H 03/06/19 13:38 Laboratory 03/06/19 03/06/19 03/06/19 11:40 11:40 11:40 WBC 16.1 H RBC 3.75 Hgb 10.8 L Hct 32.3 L MCV 86 MCH 28.8 MCHC 33.4 RDW 15.4 H Plt Count 330 Lymph % (Auto) 8.6 L [place] % (Auto) 2.7 L Eos % (Auto) 0.3 Baso % (Auto) 0.5 Absolute Neuts (auto) 14.2 H Absolute Lymphs (auto) 1.4 Absolute Monos (auto) 0.4 Absolute Eos (auto) 0.1 Absolute Basos (auto) 0.1 Seg Neutrophils % 87.9 H Sodium 135.1 L Potassium 3.7 Chloride 102 Carbon Dioxide 24 Anion Gap 9 BUN 13 Creatinine 0.73 Est GFR ( Amer) > 60 Est GFR (MDRD) Non-Af > 60 Glucose 116 H Calcium 9.0 Total Bilirubin 0.3 Direct Bilirubin 0.1 Neonat Total Bilirubin Not Reportable Neonat Direct Bilirubin Not Reportable Neonat Indirect Bili Not Reportable AST 41 H ALT 31 Alkaline Phosphatase 90 Total Protein 6.7 Albumin 3.8 Urine Color HAVEN Urine Appearance SLIGHTLY-CLOUDY Urine pH 5.0 Ur Specific [place] 1.038 Urine Protein 30 H Urine Glucose (UA) NEGATIVE Urine Ketones 20 H Urine Blood NEGATIVE Urine Nitrite NEGATIVE Urine Bilirubin NEGATIVE Urine Urobilinogen 4.0 H Ur Leukocyte Esterase NEGATIVE Urine WBC (Auto) 3 Urine RBC (Auto) 0 Squamous Epi Cells Auto 5 Urine Mucus (Auto) MANY Urine Ascorbic Acid NEGATIVE Discharge - Discharge Clinical Impression: Abdominal pain affecting Condition: Stable Disposition: LABOR CHECK Admitting Provider: [facility] - Dr. Villarreal Unit Admitted: Labor and Delivery Instructions: Abdominal Pain ([facility]) Additional Instructions: go straight to Labor and Delivery to see Dr. Villarreal Referrals: INNA VILLARREAL MD [ACTIVE STAFF] - Follow up as needed (see dr villarreal today)
== END 2019-03-06 15:32 | disposition admitted as inpatient to this hospital (09) ==
LOC: ER 10:58
DX: O26.892 Other specified pregnancy related conditions, second trimester (principal); R10.31 Right lower quadrant pain; R10.813 Right lower quadrant abdominal tenderness; R32 Unspecified urinary incontinence; R53.1 Weakness; O21.2 Late vomiting of pregnancy; O99.342 Other mental disorders complicating pregnancy, second trimester; F41.9 Anxiety disorder, unspecified; O99.332 Smoking (tobacco) complicating pregnancy, second trimester; F17.200 Nicotine dependence, unspecified, uncomplicated; O26.812 Pregnancy related exhaustion and fatigue, second trimester; Z3A.22 22 weeks gestation of pregnancy
CPT/HCPCS: 99284; 96361; 96374; 36415; 85025; 80053; 81001; J2765; J7030

== ENCOUNTER 2019-03-06 15:20 | Outpatient (CLI) | payer OTHER, MEDICAID ==
[2019-03-06 16:27] LABS: BACTERIA (WET MOUNT) 4+ BACTERIA SEEN; EPITHELIALS (WET MOUNT) 4+ EPITHELIALS SEEN; T.VAGINALIS (WET MOUNT) NO TRICHOMONAS SEEN; WBCS (WET MOUNT) 1+ WBCS SEEN; YEAST (WET MOUNT) NO YEAST SEEN
[2019-03-06 16:32] LABS: URINE AMPHETAMINES SCREEN NEGATIVE; URINE BARBITURATES SCREEN NEGATIVE; URINE BENZODIAZEPINES SCREEN NEGATIVE; URINE COCAINE SCREEN NEGATIVE; URINE MARIJUANA (THC) SCREEN NEGATIVE; URINE METHADONE SCREEN NEGATIVE; URINE PHENCYCLIDINE SCREEN NEGATIVE
--- NOTE | 2019-03-06 16:54 | RADIOLOGY REPORT (SQ) ---
EXAM DESCRIPTION: U/S OB LIMITED COMPLETED DATE/TIME: 03/06/2019 4:44 pm REASON FOR STUDY: 23 wks, abdomina pain COMPARISON: 12/01/2018 TECHNIQUE: Limited transabdominal grayscale ultrasound for evaluation of specific requested obstetri carlos parameters. LIMITATIONS: None. FINDINGS: CERVICAL LENGTH: 3.2 cm. Closed. LVP: 4.0 cm. FHR: 143 beats per minute. PRESENTATION: Cephalic. PLACENTA: Posterior in location. ANATOMY: Not assessed OTHER: No other significant findings. IMPRESSION: LIMITED OBSTETRICAL ULTRASOUND WITH MEASURED PARAMETERS DELINEATED ABOVE. Trimester of : Second trimester - 13 weeks 1 day to 27 weeks 6 days. TECHNICAL DOCUMENTATION: JOB ID: [id number] [employer]- All Rights Reserved Reading location - IP/workstation name: [email or web address]
--- NOTE | 2019-03-06 17:19 | RADIOLOGY REPORT (SQ) ---
EXAM DESCRIPTION: MRI ABDOMEN WITHOUT COMPLETED DATE/TIME: 03/06/2019 5:01 pm REASON FOR STUDY: 23 weeks, r/o appendicitis COMPARISON: None. TECHNIQUE: Multiplanar multisequence imaging performed without contrast including sagittal, axial an d coronal T2, axial T1 and axial gradient fat sat T1. CONTRAST TYPE AND DOSE: None. RENAL FUNCTION: Not indicated. ACR Type II contrast agent associated with few, if any, unconfounded cases of NSF LIMITATIONS: Patient motion. FINDINGS: LIVER: Normal size. No masses. No dilated ducts. CBD normal. SPLEEN: Normal size. No focal lesions. PANCREAS: No masses. No adjacent inflammation or peripancreatic fluid collections. Pancreatic duct no t dilated. GALLBLADDER: Gallstones are noted. No surrounding inflammation. ADRENAL GLANDS: No significant masses or asymmetry. RIGHT KIDNEY AND URETER: No masses. No hydronephrosis. LEFT KIDNEY AND URETER: No masses. No hydronephrosis. AORTA AND VESSELS: No aneurysm. No dissection. Renal arteries, SMA, celiac without stenosis. RETROPERITONEUM: No retroperitoneal adenopathy, hemorrhage or masses. BOWEL: No visualized masses. No inflammation. No significant dilatation. There are no inflammatory changes in the right lower quadrant. The appendix is difficult to the identify on the axial images. On series 9 images 12 through 16 there is a tubular structure which appears to represent appendix. It is non dilated. ABDOMINAL WALL AND PERITONEUM: No hernias. No free fluid. BONES: No acute or significant findings. OTHER: Intrauterine gestation is noted. IMPRESSION: Limited study due to patient gestational age and respiratory motion. There are gallston es. No inflammatory changes in the right lower quadrant. There appears to be a normal appendix on c oronal series, images 12 through 16. TECHNICAL DOCUMENTATION: JOB ID: [id number] [employer]- All Rights Reserved Reading location - IP/workstation name: [email or web address]
[2019-03-06 17:54] LABS: CHLAM PCR NOT DETECTED (NOT DETECT)
== END 2019-03-06 18:26 | disposition home or self-care (01) ==
LOC: LC 15:20
PROVIDERS: ATTEND Student in an Organized Health Care Education/Training Program
PROC: 4A1HXCZ Monitoring of Products of Conception, Cardiac Rate, External Approach (ICD-10-PCS; principal; 2019-03-06)
DX: O99.612 Diseases of the digestive system complicating pregnancy, second trimester (principal); K80.80 Other cholelithiasis without obstruction; O99.332 Smoking (tobacco) complicating pregnancy, second trimester; F17.210 Nicotine dependence, cigarettes, uncomplicated; Z3A.23 23 weeks gestation of pregnancy
CPT/HCPCS: 74181; 76815; 80307; 87210; 87491; 87591

== ENCOUNTER 2019-05-09 21:34 | Emergency (ER) | payer OTHER, MEDICAID ==
[2019-05-09 21:49] VITALS: BP 125/70
[2019-05-09] MEDS ORDERED: ALBUTEROL SULFATE 0.083% NEB 2.5 MG/3 ML AMPUL NEB ONE (23:07)
[2019-05-09] MEDS ORDERED: ACETAMINOPHEN 325 MG TABLET PO ONE (23:08)
[2019-05-09] MEDS ORDERED: NORMAL SALINE 1000 ML 1,000 ML IV ONE (23:08)
--- NOTE | 2019-05-09 23:10 | ER Document Report ---
ED Medical Screen (RME) - General Chief Complaint: Productive Cough Stated Complaint: SEVERE COUGH,BACKACHE,HEADACHE Time Seen by Provider: 05/09/19 23:04 Primary Care Provider: FARIBA BAEZ DO [Primary Care Provider] - Follow up as needed Information source: Patient Notes: Patient presents complaining of cough that started yesterday. Patient with chest pain and upper back pain. Patient with audible wheezing. Patient complains of headache. Patient states she has had vomiting after coughing. No fever. Patient does complain of sore throat. Patient is presently 31 weeks . Patient reports decreased movement today. I have greeted and performed a rapid initial assessment of this patient. A comprehensive ED assessment and evaluation of the patient, analysis of test results and completion of the medical decision making process will be conducted by additional ED providers. TRAVEL OUTSIDE OF THE [place] IN LAST 30 DAYS: No - Related Data Allergies/Adverse Reactions: No Known Allergies Allergy (Verified 03/06/19 15:45) Past Medical History Renal/ Medical History: Denies: Hx Peritoneal Dialysis Psychiatric Medical History: Reports: Hx Depression - Immunizations Immunizations up to date: Yes Physical Exam - Vital signs Vitals: Temp Pulse Resp BP Pulse Ox 98.4 F 127 H 18 125/70 97 05/09/19 21:43 05/09/19 21:43 05/09/19 21:43 05/09/19 21:43 05/09/19 21:43 - Respiratory Breath sounds: Nonproductive cough, Wheezing - Cardiovascular Rhythm: Tachycardia Heart sounds: S1 appreciated, S2 appreciated Course - Vital Signs Vital signs: Temp Pulse Resp BP Pulse Ox 98.4 F 127 H 18 125/70 97 05/09/19 21:43 05/09/19 21:43 05/09/19 21:43 05/09/19 21:43 05/09/19 21:43 Doctor's Discharge - Discharge Referrals: FARIBA BAEZ DO [Primary Care Provider] - Follow up as needed
--- NOTE | 2019-05-09 23:49 | RADIOLOGY REPORT (SQ) ---
EXAM DESCRIPTION: XR CHEST 2 VIEWS COMPLETED DATE/TME: 05/09/2019 23:07 CLINICAL HISTORY: 34 years, Female, cp, cough COMPARISON: None. NUMBER OF VIEWS: TECHNIQUE: LIMITATIONS: None. FINDINGS: No evidence of pulmonary infiltrate or pleural effusion. The heart and mediastinum are unremarkable. Pulmonary vascularity appears normal. IMPRESSION: Normal chest x-ray. copyright 2010 [employer]- All Rights Reserved
[2019-05-10 00:40] LABS: A TYPE INFLUENZA AG NEGATIVE (NEGATIVE); B INFLUENZA AG NEGATIVE (NEGATIVE)
[2019-05-10] MEDS ORDERED: ALBUTEROL SULFATE HFA (90 MCG/PUFF) 8 GM MDI (1 MDI/ER DISP) IH ONE (03:02)
[2019-05-10] MEDS ORDERED: PREDNISONE 20 MG TABLET PO ONE (03:03)
[2019-05-10] MEDS ORDERED: ALBUTEROL SULFATE 0.083% NEB 2.5 MG/3 ML AMPUL NEB ONE (03:08)
[2019-05-10] MEDS ORDERED: ACETAMINOPHEN 325 MG TABLET ONE (03:09)
--- NOTE | 2019-05-10 03:11 | ER Document Report ---
ED General - General Chief Complaint: Cold Symptoms Stated Complaint: SEVERE COUGH,BACKACHE,HEADACHE Time Seen by Provider: 05/09/19 23:04 Primary Care Provider: FARIBA BAEZ DO [Primary Care Provider] - Follow up as needed Notes: 34-year-old female who is a G4, P3 and 31 weeks presents the emergency department complaining of a headache and cough associated with chest and back pain worsened when she coughs. Patient states that the pain only happens when she coughs and the headache only happens when she coughs. The cough is mildly productive. She denies any fevers, admits rhinorrhea. States that she has had some [place] contractions but denies any pain with these. Has not had any vaginal discharge. TRAVEL OUTSIDE OF THE [place] IN LAST 30 DAYS: No - Related Data Allergies/Adverse Reactions: No Known Allergies Allergy (Verified 03/06/19 15:45) Home Medications: zoloft 50 mg qday. robitussin prn Past Medical History - General Information source: Patient - Social History Smoking Status: Current Every Day Smoker Frequency of alcohol use: None Drug Abuse: None Family History: None Patient has suicidal ideation: No Patient has homicidal ideation: No Renal/ Medical History: Denies: Hx Peritoneal Dialysis Psychiatric Medical History: Reports: Hx Depression - Immunizations Immunizations up to date: Yes Review of Systems - Review of Systems Constitutional: No symptoms reported EENT: See HPI Cardiovascular: See HPI Respiratory: See HPI Female Genitourinary: See HPI Musculoskeletal: See HPI -: Yes All other systems reviewed and negative Physical Exam - Vital signs Vitals: Temp Pulse Resp BP Pulse Ox 98.4 F 127 H 18 125/70 97 05/09/19 21:43 05/09/19 21:43 05/09/19 21:43 05/09/19 21:43 05/09/19 21:43 Interpretation: Tachycardic - Notes Notes: GENERAL: Alert, interacts well. No acute distress. HEAD: Normocephalic, atraumatic EYES: Pupils equal, round and reactive to light, extraocular movements intact. ENT: Oral mucosa moist, tongue midline. Clear rhinorrhea, tympanic membranes intact. Postnasal drip. NECK: Full range of motion, supple, trachea midline. LUNGS: Mild expiratory wheezing, trace rhonchi, no respiratory distress. wet cough HEART: Mildly tachycardic rate and rhythm, no murmurs, gallops, rubs. ABDOMEN: nontender, gravid bowel sounds present in all 4 quadrants. EXTREMITIES: Moves all 4 extremities spontaneously, no edema, radial and dorsalis pedis pulses 2/4 bilaterally. No cyanosis. NEUROLOGICAL: Alert and oriented x3, normal speech. PSYCH: Normal mood, normal affect. SKIN: Warm, Dry, normal turgor, no rashes or lesions noted. Course - Re-evaluation Re-evalutation: 05/10/19 03:07 CXR shows no acute process, flu swabs and strep swabs are negative. Patient declines IV fluids at this time. Presentation consistent with acute viral illness. Suspect the chest and back pain is due to cough. Tessalon Perles are unfortunately not safe in , wheezing will be treated with steroids and albuterol inhaler. Patient is encouraged to use nasal steroids and nasal saline rinses. Encouraged to use honey for cough suppression no more than 4 times a day she is a gestational diabetic. Encouraged to be seen in labor and delivery due to her [place] Camacho however she refuses to do this at this time. Discharged home. - Vital Signs Vital signs: Temp Pulse Resp BP Pulse Ox 98.4 F 127 H 18 125/70 97 05/09/19 21:43 05/09/19 21:43 05/09/19 21:43 05/09/19 21:43 05/09/19 21:43 Discharge - Discharge Clinical Impression: Viral syndrome, Acute wheezy bronchitis, Third trimester Condition: Stable Disposition: HOME, SELF-CARE Additional Instructions: Bronchitis with Bronchospasm (Wheezing) You have bronchitis with bronchospasm (wheezing). Sometimes people d evelop wheezing with a chest cold. This occurs either because of an underlying tendency toward asthma or because the virus itself irritates the bronchial tubes. This irritation causes cough, shortness of breath, and wheezing. Emergency treatment of bronchospasm may include adrenaline shots or bronchodilator aerosol. You may feel lightheaded and have a rapid pulse for an hour or two. Rest and get plenty of fluids. At home, we'll treat you with a bronchodilator inhaler. Corticosteroids may be required for some patients. Until you recover, avoid chemical fumes, dusts, pollens, and exercising in very cold or dry air. If you smoke, stop now! Most cases of bronchitis get better without antibiotics. We prescribe antibiotics when we believe bacteria are damaging your airways, or if there's high risk the bronchitis will worsen into pneumonia. Increase your fluid intake. A cool mist humidifier may make your lungs more comfortable. An expectorant (cough medicine that loosens phlegm) can help. Repeated episodes of bronchitis and bronchospasm may result in lung damage -- for example, chronic bronchitis, recurrent pneumonias, or emphysema. If you develop a fever, increased wheezing, chest pain, or severe shortness of breath, you should contact the doctor immediately. Viral Syndrome The physician has diagnosed a viral infection. Viruses not only cause "colds," but can cause many different symptoms including generalized aching, fever, headache, cough, diarrhea, nausea, vomiting, and fatigue. The treatment, for the most part, is simply relief of symptoms. This means that antibiotics are usually not given. Rest, fluids, pain medications and, occasionally, medication for the specific symptoms that are most bothersome will be prescribed. Use good handwashing to avoid passing the virus to others. Shared toys should be cleaned with disinfectant. Clean the toilets, sinks, and counter surfaces in bathrooms. Launder clothing in hot water. Contact the physician if you develop any new or unusual symptoms such as severe headache, stiff neck, high fever, chest pain, productive cough, or shortness of breath. You should be rechecked if you don't see marked improvement within seven to 10 days. Please use nasal saline rinses such as a NetiPot or NeilMed Sinus Rinses. Please use nasal steroid such as Nasonex 1 squirt per nostril twice a day to decrease inflammation and swelling. Please also use qsdk-jhl-suyohck decongestants according to their directions on the box such as Claritin. Unfortunately Tessalon Perles and Flexeril are not safe in . There are no other prescription muscle relaxers or cough suppressants that are safe in that I can think of at this time. Please follow-up with your [facility] as an outpatient. Prescriptions: Prednisone [Deltasone 20 mg Tablet] 2 tab PO DAILY 4 Days tablet Referrals: FARIBA BAEZ DO [Primary Care Provider] - Follow up as needed
--- NOTE | 2019-05-10 07:20 | EKG REPORT ---
SEVERITY:- BORDERLINE ECG - SINUS TACHYCARDIA BORDERLINE T ABNORMALITIES, ANT-LAT LEADS : Confirmed by: Cuba Chen MD 10-May-2019 07:19:46
== END 2019-05-10 04:10 | disposition home or self-care (01) ==
LOC: ER 21:34
DX: O26.893 Other specified pregnancy related conditions, third trimester (principal); J20.8 Acute bronchitis due to other specified organisms; R51 Headache; M54.9 Dorsalgia, unspecified; O99.333 Smoking (tobacco) complicating pregnancy, third trimester; Z3A.31 31 weeks gestation of pregnancy
CPT/HCPCS: 93005; 94640; 99285; 87070; 87880; 87804; 71046; 93010; J7512; J3490

== ENCOUNTER 2019-05-16 12:09 | Outpatient (CLI) | payer OTHER, MEDICAID ==
[2019-05-16 12:35] LABS: APPEARANCE,URINE SLIGHTLY-CLOUDY; BILIRUBIN,URINE NEGATIVE (NEGATIVE); COLOR,URINE AMBER; GLUCOSE, URINE NEGATIVE (NEGATIVE); KETONES,URINE 20 mg/dL (NEGATIVE); LEUKOCYTE ESTERASE,URINE NEGATIVE (NEGATIVE); NITRITE,URINE NEGATIVE (NEGATIVE); PROTEIN,URINE 30 mg/dL (NEGATIVE)
[2019-05-16 13:00] LABS: URINE AMPHETAMINES SCREEN NEGATIVE; URINE BARBITURATES SCREEN NEGATIVE; URINE BENZODIAZEPINES SCREEN NEGATIVE; URINE COCAINE SCREEN NEGATIVE; URINE MARIJUANA (THC) SCREEN NEGATIVE; URINE METHADONE SCREEN NEGATIVE; URINE PHENCYCLIDINE SCREEN NEGATIVE
== END 2019-05-16 12:59 | disposition home or self-care (01) ==
LOC: LC 12:09
PROVIDERS: ATTEND Obstetrics & Gynecology
PROC: 4A1HXCZ Monitoring of Products of Conception, Cardiac Rate, External Approach (ICD-10-PCS; principal; 2019-05-16)
DX: O47.03 False labor before 37 completed weeks of gestation, third trimester (principal); O09.523 Supervision of elderly multigravida, third trimester; O99.333 Smoking (tobacco) complicating pregnancy, third trimester; F17.210 Nicotine dependence, cigarettes, uncomplicated; Z3A.32 32 weeks gestation of pregnancy
CPT/HCPCS: 59025; 80307; 81001

== ENCOUNTER 2019-06-10 00:01 | Outpatient (CLI) | payer OTHER, MEDICAID ==
--- NOTE | 2019-06-10 00:06 | Non Stress Test Report ---
Non Stress Test Datetime Report Generated by CPN: 06/10/2019 00:05 DEMOGRAPHIC EGA NST: 32.4 MONITORING Monitor Explained: Monitor Explained; Test Explained; Patient Verbalized Understanding Time on Monitor: 05/16/2019 12:22 Time off Monitor: 05/16/2019 12:50 NST Duration: 28 NST INTERVENTIONS NST Interventions: PO Hydration Physician Notified NST: J Iniguez CNM BABY A: [id number] BABY A Movement : Present Contraction Frequency : irregular FHR Baseline : 140 Accelerations : 15X15 Decelerations : None Variability : Moderate 6-25bpm NST Review: Meets Criteria for Reactive NST NST Review and Verified By : B Baidy RN NST Results: Reactive NST REPORT Report Trigger: Send Report
[2019-06-10 00:52] LABS: APPEARANCE,URINE SLIGHTLY-CLOUDY; BILIRUBIN,URINE NEGATIVE (NEGATIVE); COLOR,URINE AMBER; GLUCOSE, URINE NEGATIVE (NEGATIVE); KETONES,URINE TRACE mg/dL (NEGATIVE); LEUKOCYTE ESTERASE,URINE SMALL (NEGATIVE); NITRITE,URINE NEGATIVE (NEGATIVE); PROTEIN,URINE 30 mg/dL (NEGATIVE); URINE SPECIFIC GRAVITY 1.026
[2019-06-10 00:55] LABS: URINE AMPHETAMINES SCREEN NEGATIVE; URINE BARBITURATES SCREEN NEGATIVE; URINE BENZODIAZEPINES SCREEN NEGATIVE; URINE COCAINE SCREEN NEGATIVE; URINE MARIJUANA (THC) SCREEN NEGATIVE; URINE METHADONE SCREEN NEGATIVE; URINE PHENCYCLIDINE SCREEN NEGATIVE
--- NOTE | 2019-06-10 02:35 | Non Stress Test Report ---
Non Stress Test Datetime Report Generated by CPN: 06/10/2019 02:35 DEMOGRAPHIC EGA NST: 36.1 INDICATION Indication for Study (NST) Other: labor check MONITORING Monitor Explained: Monitor Explained; Test Explained; Patient Verbalized Understanding Time on Monitor: 06/10/2019 00:25 Time off Monitor: 06/10/2019 02:10 NST Duration: 105 NST INTERVENTIONS NST Interventions: None Physician Notified NST: Dr Donohue BABY A Movement : Present Contraction Frequency : occ FHR Baseline : 140 Accelerations : 15X15 Decelerations : None Variability : Moderate 6-25bpm NST Review: Does Not Meet Criteria for Reactive NST NST Review and Verified By : Kanu Mendoza RN NST Results: Reactive NST REPORT Report Trigger: Send Report
== END 2019-06-10 02:20 | disposition home or self-care (01) ==
LOC: LC 00:01
PROVIDERS: ATTEND Obstetrics & Gynecology Gynecology
PROC: 4A1HXCZ Monitoring of Products of Conception, Cardiac Rate, External Approach (ICD-10-PCS; principal; 2019-06-10)
DX: O47.03 False labor before 37 completed weeks of gestation, third trimester (principal); Z3A.36 36 weeks gestation of pregnancy
CPT/HCPCS: 59025; 80307; 81001

== ENCOUNTER 2019-06-15 09:15 | Inpatient (IN) | payer OTHER, MEDICAID ==
[2019-06-15 10:16] LABS: APPEARANCE,URINE SLIGHTLY-CLOUDY; BILIRUBIN,URINE NEGATIVE (NEGATIVE); COLOR,URINE YELLOW; GLUCOSE, URINE NEGATIVE (NEGATIVE); KETONES,URINE NEGATIVE (NEGATIVE); LEUKOCYTE ESTERASE,URINE MODERATE (NEGATIVE); NITRITE,URINE NEGATIVE (NEGATIVE); PROTEIN,URINE 30 mg/dL (NEGATIVE); URINE SPECIFIC GRAVITY 1.019
[2019-06-15 10:28] LABS: ABSOLUTE LYMPHOCYTES (AUTO) 1.2 10^3/uL (0.5-4.7); ABSOLUTE MONOCYTES (AUTO) 0.5 10^3/uL (0.1-1.4); ABSOLUTE NEUT (AUTO) 10.6 10^3/uL (1.7-8.2); BASOPHILS % (AUTO) 0.2 % (0-2); EOSINOPHILS % (AUTO) 0.3 % (0-6); HEMOGLOBIN 9.6 g/dL (12.0-15.5); LYMPHOCYTES % (AUTO) 9.4 % (13-45); MEAN CORPUSCULAR HEMOGLOBIN 27.4 pg (27.0-33.4); MEAN CORPUSCULAR VOLUME 83 fl (80-97); MONOCYTES % (AUTO) 4.4 % (3-13); PLATELET COUNT 312 10^3/uL (150-450); SEGMENTED NEUTROPHILS % (AUTO) 85.7 % (42-78); TOTAL CELLS COUNTED % (AUTO) 100 %; WHITE BLOOD COUNT 12.4 10^3/uL (4.0-10.5)
[2019-06-15 10:35] LABS: URINE AMPHETAMINES SCREEN NEGATIVE; URINE BARBITURATES SCREEN NEGATIVE; URINE BENZODIAZEPINES SCREEN NEGATIVE; URINE COCAINE SCREEN NEGATIVE; URINE MARIJUANA (THC) SCREEN NEGATIVE; URINE METHADONE SCREEN NEGATIVE; URINE PHENCYCLIDINE SCREEN NEGATIVE
[2019-06-15] MEDS ORDERED: OXYTOCIN/NORMAL SALINE 20 UNIT/1,000 ML RTUINJ IV PRN ×2 (10:58→16:09)
[2019-06-15] MEDS ORDERED: LIDOCAINE 1% INJ-PF (10 MG/ML) 30 ML SDV ONE (11:05)
[2019-06-15] MEDS ORDERED: MISOPROSTOL 0.2 MG TABLET ONE (11:05)
[2019-06-15] MEDS ORDERED: OXYTOCIN 10 UNIT/ML VIAL ONE (11:05)
[2019-06-15] MEDS ORDERED: OXYTOCIN/NORMAL SALINE 20 UNIT/1,000 ML RTUINJ ONE (11:06)
--- NOTE | 2019-06-15 11:19 | Admission Physical ---
Datetime Report Generated by CPN: 06/15/2019 11:18 CURRENT ADMISSION Chief Complaint: Suspected Ruptured Membranes Indication for Induction: Not Applicable Admit Impression : Ruptured Membranes Admit Plan: Admit to Unit; Initiate Labor Augmentation Protocol ALLERGIES Medication Allergies: No Medication Allergies: No Known Allergies (05/16/2019) Latex: No Latex Allergies OBSTETRICAL HISTORY EDC: 07/07/2019 00:00 : 4 Para: 3 Term: 1 : 2 SAB: 0 IAB: 0 Ectopic: 0 Livin Cesareans: 0 VBACs: 0 Multiple Births: 0 Gestational Diabetes: No Rh Sensitization: No Incompetent Cervix: No BEATRIZ: No Infertility: No ART Treatment: No Uterine Anomaly: No IUGR: No Hx Previous C/S: No Macrosomia: No Hx Loss/Stillborn: No PIH: No Hx : No Placenta Previa/Abruption: No Depression/PP Depression: Yes PTL/PROM: No Post Hemorrhage: No Current Procedures: Ultrasound; NST Obstetrical History Comments: G1 - 2003 full-term female G2 -2005 IOL for IUGR @ 34 weeks G3 - 2007 35 week male G4 - current, anemia (Annotations: Data stored by N on behalf of user) SEE RECORDS Alcohol: No Marijuana : No Cocaine: No Other Illicit Drugs: No Cigarettes: Current Everyday Smoker. [id number] MEDICAL HISTORY Diabetes: No Blood Transfusion: No Pulmonary Disease (Asthma, TB): No Breast Disease: No Hypertension: No [employer] Surgery: No Heart Disease: No Hosp/Surgery: Yes Autoimmune Disorder: No Anesthetic Complications: No Kidney Disease: No Abnormal Pap Smear: Yes Neuro/Epilepsy: No Psychiatric Disorders: No Other Medical Diseases: No Hepatitis/Liver Disease: No Significant Family History: No Varicosities/Phlebitis: No Trauma/Violence : Yes Thyroid Dysfunction: No Medical History Comments: Depression, PTSD- related, anxiety- , smoker INFECTIOUS HISTORY Gonorrhea: No Genital Herpes: Yes Chlamydia: No Tuberculosis: No Syphilis: No Hepatitis: No HIV/AIDS Exposure: No Rash or Viral Illness: No HPV: No Infectious History Comments: HSV- no valtrex this PHYSICAL EXAM General: Normal HEENT: Deferred Neurologic: Normal Thyroid: Deferred Heart: Normal Lungs: Normal Breast: Deferred Back: Deferred Abdomen: Normal Genitourinary Exam: Normal Extremities: Normal DTRs: Normal Pelvic Type: Adequate Physical Exam Comments: Perineal area examined, no lesions or edema noted 3-4 cm per RN, consistent with exam in office yesterday per Dr. Samson Vital Signs: Reviewed MEMBRANES Membranes: Ruptured Amniotic Fluid Color: Clear FETUS A EGA: 36.6 Monitoring: External US FHR- Baseline: 140 Variability: Moderate 6-25bpm Accelerations: 15X15 Decelerations: None Presentation: Vertex Admit Comment: SROM this am hx HSV, has not started Valtrex, denies symptoms of outbreak Cholestasis GDMA1 Obesity PLANS FOR LABOR AND DELIVERY Labor and Delivery: None Pain Management: Epidural Feeding Preference: Breast Benefit of Breast Feed Discussed: Yes Circumcision: Yes INFORMED CONSENT Assignment: Amanda Samson MD Signature: with User ID: Jean : with User ID: Jean
[2019-06-15] MEDS: RINGERS SOLUTION,LACTATED 1,000 ML IV PRN ×2 (11:33→14:15)
[2019-06-15] MEDS ORDERED: FENTANYL CITRATE INJ/PF 100 MCG/2 ML AMPUL ONE (13:02)
[2019-06-15] MEDS ORDERED: PHENYLEPHRINE HCL INJ/PF 10 MG/1 ML SDV ONE (13:02)
[2019-06-15] MEDS ORDERED: EPHEDRINE SULFATE INJ 50 MG/1 ML AMPULE ONE (13:03)
[2019-06-15] MEDS ORDERED: BUPIVACAINE HCL 0.25 % INJ/PF (2.5 MG/1 ML) 30 ML VIAL ONE (13:03)
[2019-06-15] MEDS ORDERED: FENTANYL/BUPIVACAINE/NS/PF 300 MCG/150 ML RTUINJ EPI ONE (13:03)
[2019-06-15] MEDS ORDERED: DIPH/PERTUSS(ACELL)/TETANUS VAC/PF 0.5 ML SYR (>=10YO) IM PRN (16:09)
[2019-06-15] MEDS ORDERED: ZOLPIDEM TARTRATE 5 MG TABLET PO PRN (16:09)
[2019-06-15] MEDS ORDERED: DIBUCAINE 1% OINTMENT 28 GM TP PRN (16:09)
[2019-06-15] MEDS ORDERED: MEASLES,MUMPS&RUBELLA VACC/PF 0.5 ML VIAL SUBCUT PRN (16:09)
[2019-06-15] MEDS ORDERED: BENZOCAINE/MENTHOL AEROSOL SPRAY 56 ML TOP PRN (16:09)
--- NOTE | 2019-06-15 16:45 | Warning Signs in Babies ---
VOD Warning Signs Datetime Report Generated by [facility]: 06/15/2019 16:45 VOD#608 -Warning Signs in Babies: Viewed with Parent(s)/Family (06/15/2019 16:40:Elenita Morin RN)
--- NOTE | 2019-06-15 17:58 | Delivery Summary ---
Del Sum A-C Datetime Report Generated by CPN: 06/15/2019 17:57 DELIVERY PERSONNEL DELIVERY PERSONNEL: [id number] Delivery Doctor:: Nancy Stewart CNM Nurse Fur Feeder Certified:: Nancy Stewart CNM Labor and Delivery Nurse:: Anastacia Fernandez RNloss control manager Nurse:: Elenita Morin RN Nursery Nurse:: Emely Jon RN Patternmaker/APPAREL MERCHANDISER: [facility] Patternmaker/APPAREL MERCHANDISER: [facility] Additional Personnel: : LIS Vo MATERNAL INFORMATION Delivery Anesthesia: Epidural Medications After Delivery: Pitocin Bolus-Please Comment Meds After Delivery Comment: 20 units in 1000ml open bolus Delivery QBL: 801 Maternal Complications: None LABOR SUMMARY EDC: 07/07/2019 00:00 No. Babies in Womb: 1 Attempted: No Labor Anesthesia: Epidural LABOR INFORMATION Reason for Induction: Not Applicable Onset of Labor: 06/15/2019 12:56 Complete Dilatation: 06/15/2019 15:17 Oxytocin: Augmentation Group B Beta Strep: Negative Antibiotics # of Doses: 0 Steroids Given: None Reason Steroids Not Administered: Not Applicable MEMBRANES Membranes Rupture Method: Spontaneous Rupture of Membranes: 06/15/2019 07:30 Length of Rupture (hr): 8.28 Amniotic Fluid Color: Clear Amniotic Fluid Amount: Large Amniotic Fluid Odor: Normal STAGES OF LABOR Stage 1 hr: 2 Stage 1 min: 21 Stage 2 hr: 0 Stage 2 min: 30 Stage 3 hr: 0 Stage 3 min: 11 Total Time in Labor hr: 3 Total Time in Labor min: 2 VAGINAL DELIVERY Episiotomy: None Laceration #1: Perineal Laceration Extension #1: N/A Other Laceration: superficial abrasion Laceration Repair: No Sponge Count Correct: N/A Sharps Count Correct: N/A CSECTION DELIVERY Primary Indication: N/A Secondary Indication: N/A CSection Incidence: N/A Labor: N/A Elective: N/A CSection Incision: N/A BABY A INFORMATION Delivery Date/Time: 06/15/2019 15:47 Method of Delivery: Vaginal Born in Route : No : N/A Forceps: N/A Vacuum Extraction: N/A Shoulder Dystocia : No PRESENTATION/POSITION BABY A Presentation: Cephalic Cephalic Presentation: Vertex Vertex Position: Right Occipital Anterior Breech Presentation: N/A PLACENTA INFORMATION BABY A Placenta Delivery Time : 06/15/2019 15:58 Placenta Method of Delivery: Spontaneous Placenta Status: Delivered SCORES BABY A Heart Rate 1 min: >100 bpm Resp Effort 1 min: Good Cry Reflex Irritability 1 min: Cough or Sneeze or Pulls Away Muscle Tone 1 min: Active Motion Color 1 min: Blue/Pale Resuscitation Effort 1 min: Tactile Stimulation SCORE 1 MIN: 8 Heart Rate 5 min: >100 bpm Resp Effort 5 min: Good Cry Reflex Irritability 5 min: Cough or Sneeze or Pulls Away Muscle Tone 5 min: Active Motion Color 5 min: Blue/Pale Resuscitation Effort 5 min: Tactile Stimulation SCORE 5 MIN: 8 INFANT INFORMATION BABY A Gestational Age at Delivery: 37.0 Gestational Status: Early Term- 37- 38.6 Weeks Infant Outcome : Liveborn Infant Condition : Stable Sex: Male IDENTIFICATION BABY A Verification Date/Time: 06/15/2019 17:01 ID Band Number: [id number] Mother's Name Verified: Yes Infant RN Verifying : Amarilys Morin, RN Additional Verifying Personnel: CIbis Jon, RN WEIGHT/LENGTH BABY A Infant Birthweight (gm): 3277 Infant Weight (lb): 7 Infant Weight (oz): 4 Length (in): 19.75 Length (cm): 50.17 CORD INFORMATION BABY A No. Cord Vessels: 3 Nuchal Cord : N/A Cord Blood Taken: Yes-For Storage (Mom's Blood type +) Suction: None ASSESSMENT BABY A Complications: None Physical Findings at Delivery: Within Normal Limits Skin to Skin: Yes Skin to Skin Time (min): 60 Sales Service Executive/ALS Called : No Care By: Rafa Jon, RN Transferred To: Remains with Mother BABY B INFORMATION : N/A SIGNATURES : I was personally available for consultation and serving as supervising physician for the MLP.
[2019-06-15] MEDS: DOCUSATE SODIUM 100 MG CAPSULE PO SCH (18:43)
[2019-06-15] MEDS: FERROUS SULFATE 325 MG TABLET PO SCH (18:43)
[2019-06-15] MEDS ORDERED: ACETAMINOPHEN 325 MG TABLET PO PRN (21:37)
[2019-06-15] MEDS: IBUPROFEN 800 MG TABLET PO SCH (22:59)
[2019-06-16] MEDS: IBUPROFEN 800 MG TABLET PO SCH ×3 (06:27→21:03)
[2019-06-16 08:01] LABS: ABSOLUTE LYMPHOCYTES (AUTO) 2.1 10^3/uL (0.5-4.7); ABSOLUTE NEUT (AUTO) 14.4 10^3/uL (1.7-8.2); BASOPHILS % (AUTO) 0.2 % (0-2); EOSINOPHILS % (AUTO) 0.1 % (0-6); HEMATOCRIT 27.7 % (36.0-47.0); LYMPHOCYTES % (AUTO) 11.8 % (13-45); MEAN CORPUSCULAR HEMOGLOBIN 26.9 pg (27.0-33.4); MEAN CORPUSCULAR HGB CONC 32.5 g/dL (32.0-36.0); MEAN CORPUSCULAR VOLUME 83 fl (80-97); MONOCYTES % (AUTO) 5.8 % (3-13); PLATELET COUNT 283 10^3/uL (150-450); RED BLOOD COUNT 3.35 10^6/uL (3.72-5.28); RED CELL DISTRIBUTION WIDTH 16.1 % (11.5-14.0); SEGMENTED NEUTROPHILS % (AUTO) 82.1 % (42-78); TOTAL CELLS COUNTED % (AUTO) 100 %; WHITE BLOOD COUNT 17.6 10^3/uL (4.0-10.5)
[2019-06-16] MEDS: FERROUS SULFATE 325 MG TABLET PO SCH ×2 (09:48→17:06)
[2019-06-16] MEDS: PRENATAL VITAMIN W DHA CAPSULE PO SCH (09:48)
[2019-06-16] MEDS: DOCUSATE SODIUM 100 MG CAPSULE PO SCH ×2 (09:48→17:06)
[2019-06-16] MEDS: SENNOSIDES/DOCUSATE 8.6-50 MG 1 EACH TABLET PO SCH (09:48)
--- NOTE | 2019-06-16 10:45 | PDOC DISCHARGE SUMMARY ---
Impression - Admit/DC Date/PCP Admission Date/Primary Care Provider: 06/15/19 09:43 FARIBA BAEZ DO Discharge Date: 06/17/19 - Discharge Diagnosis (1) Abnormal test Is this a current diagnosis for this admission?: Yes (2) Cholestasis during in third trimester Is this a current diagnosis for this admission?: Yes (3) Elevated blood pressure affecting in third trimester, antepartum Is this a current diagnosis for this admission?: Yes (4) Gestational diabetes Is this a current diagnosis for this admission?: Yes (5) spontaneous labor with delivery Is this a current diagnosis for this admission?: Yes (6) (spontaneous vaginal delivery) Is this a current diagnosis for this admission?: Yes - Additional Information Resuscitation Status: Full Code Discharge Diet: Regular Discharge Activity: Balance Activity w/Rest, Pelvic Rest Referrals: FARIBA BAEZ DO [Primary Care Provider] - Home Medications: Sertraline HCl [Zoloft 50 mg Tablet] 50 mg PO DAILY 06/10/19 Results Laboratory Results: WBC 17.6 10^3/uL (4.0-10.5) H 06/16/19 07:15 RBC 3.35 10^6/uL (3.72-5.28) L 06/16/19 07:15 Hgb 9.0 g/dL (12.0-15.5) L 06/16/19 07:15 Hct 27.7 % (36.0-47.0) L 06/16/19 07:15 MCV 83 fl (80-97) 06/16/19 07:15 MCH 26.9 pg (27.0-33.4) L 06/16/19 07:15 MCHC 32.5 g/dL (32.0-36.0) 06/16/19 07:15 RDW 16.1 % (11.5-14.0) H 06/16/19 07:15 Plt Count 283 10^3/uL (150-450) 06/16/19 07:15 Lymph % (Auto) 11.8 % (13-45) L 06/16/19 07:15 [place] % (Auto) 5.8 % (3-13) 06/16/19 07:15 Eos % (Auto) 0.1 % (0-6) 06/16/19 07:15 Baso % (Auto) 0.2 % (0-2) 06/16/19 07:15 Absolute Neuts (auto) 14.4 10^3/uL (1.7-8.2) H 06/16/19 07:15 Absolute Lymphs (auto) 2.1 10^3/uL (0.5-4.7) 06/16/19 07:15 Absolute Monos (auto) 1.0 10^3/uL (0.1-1.4) 06/16/19 07:15 Absolute Eos (auto) 0.0 10^3/uL (0.0-0.6) 06/16/19 07:15 Absolute Basos (auto) 0.0 10^3/uL (0.0-0.2) 06/16/19 07:15 Seg Neutrophils % 82.1 % (42-78) H 06/16/19 07:15 Urine Color YELLOW 06/15/19 09:25 Urine Appearance SLIGHTLY-CLOUDY 06/15/19 09:25 Urine pH 6.0 (5.0-9.0) 06/15/19 09:25 Ur Specific [place] 1.019 06/15/19 09:25 Urine Protein 30 mg/dL (NEGATIVE) H 06/15/19 09:25 Urine Glucose (UA) NEGATIVE mg/dL (NEGATIVE) 06/15/19 09:25 Urine Ketones NEGATIVE mg/dL (NEGATIVE) 06/15/19 09:25 Urine Blood SMALL (NEGATIVE) H 06/15/19 09:25 Urine Nitrite NEGATIVE (NEGATIVE) 06/15/19 09:25 Urine Bilirubin NEGATIVE (NEGATIVE) 06/15/19 09:25 Urine Urobilinogen 2.0 mg/dL (<2.0) H 06/15/19 09:25 Ur Leukocyte Esterase MODERATE (NEGATIVE) H 06/15/19 09:25 Urine WBC (Auto) 100 /HPF 06/15/19 09:25 Urine RBC (Auto) 27 /HPF 06/15/19 09:25 Squamous Epi Cells Auto 4 /HPF 06/15/19 09:25 Urine Mucus (Auto) RARE /LPF 06/15/19 09:25 Urine Ascorbic Acid NEGATIVE (NEGATIVE) 06/15/19 09:25 Urine Opiates Screen NEGATIVE 06/15/19 09:25 Urine Methadone Screen NEGATIVE 06/15/19 09:25 Ur Barbiturates Screen NEGATIVE 06/15/19 09:25 Ur Phencyclidine Scrn NEGATIVE 06/15/19 09:25 Ur Amphetamines Screen NEGATIVE 06/15/19 09:25 U Benzodiazepines Scrn NEGATIVE 06/15/19 09:25 Urine Cocaine Screen NEGATIVE 06/15/19 09:25 U Marijuana (THC) Screen NEGATIVE 06/15/19 09:25 Blood Type A POSITIVE 06/15/19 10:12 Antibody Screen NEGATIVE 06/15/19 10:12
--- NOTE | 2019-06-16 10:46 | PDOC PROGRESS REPORT ---
Subjective-OB Progress Note for:: 06/16/19 Subjective: Pt doing well, no concerns. She reports light bleeding regular diet. Physical Exam (OB) Vital Signs: Temp Pulse Resp BP Pulse Ox 99.0 F 104 H 18 119/69 100 06/15/19 20:15 06/15/19 20:15 06/15/19 20:15 06/15/19 20:15 06/15/19 20:15 Intake & Output 06/15/19 06/16/19 06/17/19 06:59 06:59 06:59 Intake Total 313 Balance 313 Weight 106.8 kg - PIH/Pre-Eclampsia DTR's: 1 + Clonus: Negative Headache: Absent Epigastric Pain: No Visual Changes: No - Lochia Lochia Amount: Small 10-25 ml Lochia Color: Rubra/Red - Abdomen Description: Tender, Soft Hernia Present: No Fundal Description: Firm, Midline Fundal Height: u/u - u/2 Objective-Diagnostic Laboratory: 06/16/19 07:15 06/15/19 06/16/19 10:12 07:15 WBC 17.6 H RBC 3.35 L Hgb 9.0 L Hct 27.7 L MCV 83 MCH 26.9 L MCHC 32.5 RDW 16.1 H Plt Count 283 Seg Neutrophils % 82.1 H Blood Type A POSITIVE Antibody Screen NEGATIVE Assessment and Plan(PN) - Assessment and Plan (1) Abnormal test Is this a current diagnosis for this admission?: Yes (2) Cholestasis during in third trimester Is this a current diagnosis for this admission?: Yes (3) Elevated blood pressure affecting in third trimester, antepartum Is this a current diagnosis for this admission?: Yes (4) Gestational diabetes Qualifiers: Gestational diabetes mellitus control: diet-controlled Trimester: unspec ified trimester Qualified Code(s): O24.410 - Gestational diabetes mellitus in , diet controlled Is this a current diagnosis for this admission?: Yes (5) spontaneous labor with delivery Qualifiers: Fetus number: single or unspecified fetus Qualified Code(s): O60.10X0 - labor with delivery, unspecified trimester, not applicable or unspecified Is this a current diagnosis for this admission?: Yes (6) (spontaneous vaginal delivery) Is this a current diagnosis for this admission?: Yes - Time Spent with Patient Time with patient: Less than 15 minutes Medications reviewed and adjusted accordingly: Yes - Disposition Anticipated Discharge: Home Within: within 24 hours
[2019-06-17] MEDS: IBUPROFEN 800 MG TABLET PO SCH ×2 (06:03→14:12)
[2019-06-17 06:27] LABS: MEAN CORPUSCULAR HEMOGLOBIN 26.6 pg (27.0-33.4); MEAN CORPUSCULAR HGB CONC 32.3 g/dL (32.0-36.0); MEAN CORPUSCULAR VOLUME 83 fl (80-97); PLATELET COUNT 293 10^3/uL (150-450); RED CELL DISTRIBUTION WIDTH 16.3 % (11.5-14.0); WHITE BLOOD COUNT 15.1 10^3/uL (4.0-10.5)
[2019-06-17 06:59] LABS: ABSOLUTE LYMPHOCYTES# (MANUAL) 2.9 10^3/uL (0.5-4.7); ABSOLUTE MONOCYTES # (MANUAL) 0.3 10^3/uL (0.1-1.4); BASOPHILS % (MANUAL) 0 % (0-2); EOSINOPHILS % (MANUAL) 1 % (0-6); LYMPHOCYTES % (MANUAL) 19 % (13-45); MONOCYTES % (MANUAL) 2 % (3-13); NUCLEATED RED BLOOD CELLS 2 /100 WBC (0); SEGMENTED NEUTROPHILS % (MAN) 78 % (42-78); TOTAL CELLS COUNTED 100
[2019-06-17 07:01] LABS: ANISOCYTOSIS SLIGHT; PLATELET COMMENT ADEQUATE; POIKILOCYTOSIS SLIGHT; TEAR DROP CELLS SLIGHT; TOXIC GRANULATION SLIGHT
[2019-06-17 07:42] VITALS: BP 114/66
[2019-06-17] MEDS: DOCUSATE SODIUM 100 MG CAPSULE PO SCH (10:17)
[2019-06-17] MEDS: FERROUS SULFATE 325 MG TABLET PO SCH (10:17)
[2019-06-17] MEDS: PRENATAL VITAMIN W DHA CAPSULE PO SCH (10:17)
[2019-06-17] MEDS: SENNOSIDES/DOCUSATE 8.6-50 MG 1 EACH TABLET PO SCH (10:47)
== END 2019-06-17 16:00 | disposition home or self-care (01) | DRG 805 ==
LOC: LC 09:15 → LR 09:43 → 2S 18:24
PROVIDERS: ADMIT Obstetrics & Gynecology; ATTEND Obstetrics & Gynecology
PROC: 10E0XZZ Delivery of Products of Conception, External Approach (ICD-10-PCS; principal; 2019-06-15)
DX: O42.92 Full-term premature rupture of membranes, unspecified as to length of time between rupture and onset of labor (principal); K83.1 Obstruction of bile duct; Z37.0 Single live birth; O26.62 Liver and biliary tract disorders in childbirth; O99.334 Smoking (tobacco) complicating childbirth; F17.210 Nicotine dependence, cigarettes, uncomplicated; O99.02 Anemia complicating childbirth; O70.0 First degree perineal laceration during delivery; D64.9 Anemia, unspecified; O99.344 Other mental disorders complicating childbirth; F43.10 Post-traumatic stress disorder, unspecified; F41.9 Anxiety disorder, unspecified; Z86.19 Personal history of other infectious and parasitic diseases; O24.429 Gestational diabetes mellitus in childbirth, unspecified control; O99.214 Obesity complicating childbirth; E66.9 Obesity, unspecified; Z3A.37 37 weeks gestation of pregnancy
CPT/HCPCS: 36415; 80307; 81001; 85025; 86592; 86850; 86900; 86901; 90707; 94760; J2370; J2590; J3010; J3490

== ENCOUNTER 2020-07-08 21:22 | Emergency (ER) | payer OTHER, MEDICAID ==
--- NOTE | 2020-07-08 22:40 | ER Document Report ---
ED Medical Screen (RME) - General Chief Complaint: Abdominal Pain Stated Complaint: ABDOMINAL PAIN, DIAHRREA Time Seen by Provider: 07/08/20 22:34 Primary Care Provider: FARIBA BAEZ DO [Primary Care Provider] - Follow up as needed Mode of Arrival: Ambulatory Information source: Patient TRAVEL OUTSIDE OF THE [place] IN LAST 30 DAYS: No - HPI Patient complains to provider of: Abdominal pain, diarrhea Notes: 07/08/20 22:39 -complaints of diarrhea for the last several days. States she is having some lower abdominal pain with it. She states that she thinks she is had about 30 episodes of diarrhea today. She does report that her 1-year-old had diarrhea last week but has since resolved. No recent antibiotic use. No history of colitis or diverticulitis. No blood in the stool. No fever. No vomiting. Exam: No distress, nontoxic appearing. Lungs clear throughout. Heart sounds normal. Left lower quadrant and mid lower abdominal tenderness on limited triage abdominal exam. An initial examination was made on the patient as part of the triage process, and it was determined a more comprehensive evaluation was necessary. Initial orders were placed and patient was transferred to another provider in the ED who assumed care and finished evaluation and plan. - Related Data Allergies/Adverse Reactions: No Known Allergies Allergy (Verified 07/08/20 22:34) Past Medical History Renal/ Medical History: Denies: Hx Peritoneal Dialysis Psychiatric Medical History: Reports: Hx Depression - Immunizations Immunizations up to date: Yes Physical Exam - Vital signs Vitals: Temp Pulse Resp BP Pulse Ox 98.2 F 89 17 127/64 H 98 07/08/20 21:29 07/08/20 21:29 07/08/20 21:29 07/08/20 21:29 07/08/20 21:29 Course - Vital Signs Vital signs: Temp Pulse Resp BP Pulse Ox 98.2 F 89 17 127/64 H 98 07/08/20 21:29 07/08/20 21:29 07/08/20 21:29 07/08/20 21:29 07/08/20 21:29 Doctor's Discharge - Discharge Referrals: FARIBA BAEZ DO [Primary Care Provider] - Follow up as needed
[2020-07-08 23:11] LABS: ABSOLUTE BASOPHILS # (AUTO) 0.1 10^3/uL (0.0-0.2); ABSOLUTE EOSINOPHILS # (AUTO) 0.1 10^3/uL (0.0-0.6); ABSOLUTE LYMPHOCYTES (AUTO) 1.4 10^3/uL (0.5-4.7); ABSOLUTE MONOCYTES (AUTO) 0.5 10^3/uL (0.1-1.4); ABSOLUTE NEUT (AUTO) 10.6 10^3/uL (1.7-8.2); BASOPHILS % (AUTO) 0.4 % (0-2); EOSINOPHILS % (AUTO) 0.7 % (0-6); HEMATOCRIT 38.5 % (36.0-47.0); HEMOGLOBIN 12.6 g/dL (12.0-15.5); LYMPHOCYTES % (AUTO) 10.8 % (13-45); MEAN CORPUSCULAR HEMOGLOBIN 27.8 pg (27.0-33.4); MEAN CORPUSCULAR HGB CONC 32.7 g/dL (32.0-36.0); MEAN CORPUSCULAR VOLUME 85 fl (80-97); PLATELET COUNT 355 10^3/uL (150-450); RED BLOOD COUNT 4.53 10^6/uL (3.72-5.28); RED CELL DISTRIBUTION WIDTH 13.9 % (11.5-14.0); SEGMENTED NEUTROPHILS % (AUTO) 84.1 % (42-78); TOTAL CELLS COUNTED % (AUTO) 100 %; WHITE BLOOD COUNT 12.6 10^3/uL (4.0-10.5)
[2020-07-08 23:15] LABS: APPEARANCE,URINE SLIGHTLY-CLOUDY; BILIRUBIN,URINE NEGATIVE (NEGATIVE); COLOR,URINE YELLOW; GLUCOSE, URINE NEGATIVE (NEGATIVE); KETONES,URINE NEGATIVE (NEGATIVE); LEUKOCYTE ESTERASE,URINE TRACE (NEGATIVE); NITRITE,URINE NEGATIVE (NEGATIVE); PROTEIN,URINE NEGATIVE (NEGATIVE); URINE SPECIFIC GRAVITY 1.027
[2020-07-08 23:31] LABS: ALBUMIN 4.6 g/dL (3.5-5.0); ALKALINE PHOSPHATASE 149 U/L (38-126); ANION GAP 6 (5-19); ASPARTATE AMINO TRANSFERASE 82 U/L (14-36); BILIRUBIN,DIRECT 0.2 mg/dL (0.0-0.4); BILIRUBIN,TOTAL 0.5 mg/dL (0.2-1.3); BLOOD UREA NITROGEN 18 mg/dL (7-20); CALCIUM 9.7 mg/dL (8.4-10.2); CARBON DIOXIDE 28 mmol/L (22-30); CHLORIDE 104 mmol/L (98-107); GLUCOSE 102 mg/dL (75-110); POTASSIUM 4.3 mmol/L (3.6-5.0); TOTAL PROTEIN 7.9 g/dL (6.3-8.2)
[2020-07-09 07:33] VITALS: BP 124/79
--- NOTE | 2020-07-09 09:05 | RADIOLOGY REPORT (SQ) ---
EXAM DESCRIPTION: CT ABD/PELVIS WITH IV ONLY IMAGES COMPLETED DATE/TIME: 07/09/2020 8:37 am REASON FOR STUDY: diarrhea, lower abd tenderness, HCG NEG COMPARISON: 03/06/2019 TECHNIQUE: CT scan of the abdomen and pelvis performed using helical scanning technique with dynamic intravenous contrast injection. No oral contrast. Images reviewed with lung, soft tissue, and bone windows. Reconstructed coronal and sagittal MPR images reviewed. Delayed images for evaluation of the urinary system also acquired. All images stored on PACS. All CT scanners at this facility use dose modulation, iterative reconstruction, and/or weight based d osing when appropriate to reduce radiation dose to as low as reasonably achievable (ALARA). [facility]: Dose Right [facility]: CareDose [facility]: Dose Right [facility]: Teradose 4D [facility]: HistoPathway CONTRAST TYPE AND DOSE: contrast/concentration: Isovue 350.00 mmol/ml; Total Contrast Delivered: 100 .0 ml; Total Saline Delivered: 44.8 ml RENAL FUNCTION: BUN 18; creatinine 1.08 RADIATION DOSE: CT Rad equipment meets quality standard of care and radiation dose reduction techniq ues were employed. CTDIvol: 13.4 - 17.8 mGy. DLP: 1705 mGy-cm.. LIMITATIONS: None. FINDINGS: LOWER CHEST: No significant findings. No nodules or infiltrates. LIVER: Normal size. No masses. No dilated ducts. SPLEEN: Normal size. No focal lesions. PANCREAS: No masses. No significant calcifications. No adjacent inflammation or peripancreatic fluid collections. Pancreatic duct not dilated. GALLBLADDER: Gallstones. No inflammatory changes to suggest cholecystitis. ADRENAL GLANDS: No significant masses or asymmetry. RIGHT KIDNEY AND URETER: No solid masses. No significant calcifications. No hydronephrosis or hyd roureter. LEFT KIDNEY AND URETER: No solid masses. No significant calcifications. No hydronephrosis or hydr oureter. AORTA AND VESSELS: No aneurysm. No dissection. Renal arteries, SMA, celiac without stenosis. RETROPERITONEUM: No retroperitoneal adenopathy, hemorrhage or masses. BOWEL AND PERITONEAL CAVITY: The right and transverse colon hall appear mildly edematous without sig nificant surrounding inflammatory changes. No obstruction. APPENDIX: Normal. PELVIS: The uterus and ovaries are normal for modality. No free fluid. No pelvic masses. No lympha denopathy. ABDOMINAL WALL: No masses. No hernias. BONES: No significant or acute findings. OTHER: No other significant finding. IMPRESSION: The appearance of mild colonic mural edema may represent a developing colitis. The appe ndix is well visualized, and normal in appearance. Cholelithiasis without evidence of cholecystitis. Otherwise normal CT appearance of the abdomen and pelvis. TECHNICAL DOCUMENTATION: JOB ID: [id number] Quality ID # [id number]: Final reports with documentation of one or more dose reduction techniques (e.g., Au tomated exposure control, adjustment of the mA and/or kV according to patient size, use of iterative reconstruction technique) 2010 [employer]- All Rights Reserved Reading location - IP/workstation name: [email or web address]
[2020-07-09] MEDS ORDERED: METRONIDAZOLE 500 MG TABLET PO ONE (09:43)
[2020-07-09] MEDS ORDERED: CIPROFLOXACIN HCL 500 MG TABLET PO ONE (09:43)
--- NOTE | 2020-07-09 09:55 | ER Document Report ---
ED GI/ - General Chief Complaint: Abdominal Pain Stated Complaint: ABDOMINAL PAIN, DIAHRREA Time Seen by Provider: 07/08/20 22:34 Primary Care Provider: FARIBA BAEZ DO [Primary Care Provider] - Follow up as needed Mode of Arrival: Ambulatory Information source: Patient Notes: Patient complaints of diarrhea for the past 5 days. Patient states she has been having some lower abdominal pain although pain is presently improved. She states that she thinks she is had about 30 episodes of diarrhea today. She does report that her 1-year-old had diarrhea last week but has since resolved. No recent antibiotic use. No history of colitis or diverticulitis. No blood in the stool. No fever. Patient reports some nausea, no vomiting. Patient states she has had cramping with the bowel movements. TRAVEL OUTSIDE OF THE [place] IN LAST 30 DAYS: No - HPI Patient complains to provider of: Abdominal pain, Diarrhea. No: Vomiting Onset: Other - 5 days Timing/Duration: Persistent Quality of pain: Cramping Pain Level: 3 Location: Other - Lower abdomen Vaginal bleeding (Compared to normal period): None Associated symptoms: Diarrhea, Nausea. denies: Blood in stool, Urinary hesitancy, Urinary frequency, Urinary retention, Urinary urgency, Vaginal discharge, Vomiting Exacerbated by: Denies Relieved by: Denies Similar symptoms previously: No Recently seen / treated by doctor: No - Related Data Allergies/Adverse Reactions: No Known Allergies Allergy (Verified 07/08/20 22:34) Home Medications: ZOLOFT. TRRAZADONE Past Medical History - General Information source: Patient - Social History Smoking Status: Current Every Day Smoker Frequency of alcohol use: None Drug Abuse: None Occupation: [employer] Lives with: Family Family History: None Renal/ Medical History: Denies: Hx Peritoneal Dialysis Musculoskeletal Medical History: Reports Hx Arthritis Psychiatric Medical History: Reports: Hx Depression Surgical Hx: Negative - Immunizations Immunizations up to date: Yes Review of Systems - Review of Systems Constitutional: No symptoms reported. denies: Fever EENT: No symptoms reported Cardiovascular: No symptoms reported. denies: Chest pain Respiratory: No symptoms reported. denies: Cough, Short of breath Gastrointestinal: Abdominal pain, Diarrhea, Nausea. denies: Vomiting Genitourinary: No symptoms reported. denies: Dysuria, Flank pain Female Genitourinary: No symptoms reported Musculoskeletal: No symptoms reported. denies: Back pain Skin: No symptoms reported Hematologic/Lymphatic: No symptoms reported Neurological/Psychological: No symptoms reported Physical Exam - Vital signs Vitals: Temp Pulse Resp BP Pulse Ox 98.2 F 89 17 127/64 H 98 07/08/20 21:29 07/08/20 21:29 07/08/20 21:29 07/08/20 21:29 07/08/20 21:29 - Notes Notes: PHYSICAL EXAMINATION: GENERAL: Well-appearing and in no acute distress. HEAD: Atraumatic, normocephalic. EYES: sclera anicteric, conjunctiva are normal. ENT: nares patent. Moist mucous membranes. NECK: Normal range of motion, supple LUNGS: CTAB and equal. No wheezes rales or rhonchi. HEART: Regular rate and rhythm without murmurs ABDOMEN: Soft, nontender, normal bowel sounds, no guarding. EXTREMITIES: Normal range of motion, no pitting edema. No cyanosis. BACK: No midline tenderness, no step-off or deformity. No CVA tenderness NEUROLOGICAL: Cranial nerves grossly intact. Normal speech. Normal gait. PSYCH: Normal mood, normal affect. SKIN: Warm, Dry, normal turgor, no rashes or lesions noted Course - Re-evaluation Re-evalutation: 07/09/20 09:44 Patient's abdomen soft, nontender. Patient reports numerous episodes of diarrhea although has been able tolerate oral fluids without emesis. Patient CT scan does show incidental gallstones with findings worrisome for possible early colitis. Patient without any fever. Will start patient on antibiotics and encourage outpatient follow-up with primary doctor for recheck. Good return precautions discussed at this time. Offered patient IV fluid hydration, patient declines preferring to go home to manage her symptoms at this time. 07/09/20 09:46 - Vital Signs Vital signs: Temp Pulse Resp BP Pulse Ox 98.8 F 75 16 124/79 100 07/09/20 07:32 07/09/20 07:32 07/09/20 07:32 07/09/20 07:32 07/09/20 07:32 - Laboratory Results Result Diagrams: 07/08/20 22:59 07/08/20 22:59 Laboratory Results Interpreted: 07/08/20 07/08/20 07/08/20 22:59 22:59 22:59 WBC 12.6 H Lymph % (Auto) 10.8 L Absolute Neuts (auto) 10.6 H Seg Neutrophils % 84.1 H Est GFR (MDRD) Non-Af 57 L AST 82 H ALT 86 H Alkaline Phosphatase 149 H Urine Urobilinogen 2.0 H Ur Leukocyte Esterase TRACE H 07/09/20 09:46 Labs- All tests 24 hr 07/08/20 07/08/20 07/08/20 22:59 22:59 22:59 WBC 12.6 H RBC 4.53 Hgb 12.6 Hct 38.5 MCV 85 MCH 27.8 MCHC 32.7 RDW 13.9 Plt Count 355 Lymph % (Auto) 10.8 L Bl[place] % (Auto) 4.0 Eos % (Auto) 0.7 Baso % (Auto) 0.4 Absolute Neuts (auto) 10.6 H Absolute Lymphs (auto) 1.4 Absolute Monos (auto) 0.5 Absolute Eos (auto) 0.1 Absolute Basos (auto) 0.1 Seg Neutrophils % 84.1 H Sodium 138.2 Potassium 4.3 Chloride 104 Carbon Dioxide 28 Anion Gap 6 BUN 18 Creatinine 1.08 Est GFR ( Amer) > 60 Est GFR (MDRD) Non-Af 57 L Glucose 102 Calcium 9.7 Total Bilirubin 0.5 Direct Bilirubin 0.2 Neonat Total Bilirubin Not Reportable Neonat Direct Bilirubin Not Reportable Neonat Indirect Bili Not Reportable AST 82 H ALT 86 H Alkaline Phosphatase 149 H Total Protein 7.9 Albumin 4.6 Lipase 131.2 Serum HCG, Qual NEGATIVE Urine Color Urine Appearance Urine pH Ur Specific [place] Urine Protein Urine Glucose (UA) Urine Ketones Urine Blood Urine Nitrite Urine Bilirubin Urine Urobilinogen Ur Leukocyte Esterase Urine WBC (Auto) Urine RBC (Auto) U Hyaline Cast (Auto) Urine Bacteria (Auto) Squamous Epi Cells Auto Urine Mucus (Auto) Urine Ascorbic Acid 07/08/20 22:59 WBC RBC Hgb Hct MCV MCH MCHC RDW Plt Count Lymph % (Auto) [place] % (Auto) Eos % (Auto) Baso % (Auto) Absolute Neuts (auto) Absolute Lymphs (auto) Absolute Monos (auto) Absolute Eos (auto) Absolute Basos (auto) Seg Neutrophils % Sodium Potassium Chloride Carbon Dioxide Anion Gap BUN Creatinine Est GFR ( Amer) Est GFR (MDRD) Non-Af Glucose Calcium Total Bilirubin Direct Bilirubin Neonat Total Bilirubin Neonat Direct Bilirubin Neonat Indirect Bili AST ALT Alkaline Phosphatase Total Protein Albumin Lipase Serum HCG, Qual Urine Color YELLOW Urine Appearance SLIGHTLY-CLOUDY Urine pH 5.0 Ur Specific [place] 1.027 Urine Protein NEGATIVE Urine Glucose (UA) NEGATIVE Urine Ketones NEGATIVE Urine Blood NEGATIVE Urine Nitrite NEGATIVE Urine Bilirubin NEGATIVE Urine Urobilinogen 2.0 H Ur Leukocyte Esterase TRACE H Urine WBC (Auto) 1 Urine RBC (Auto) 1 U Hyaline Cast (Auto) 8 Urine Bacteria (Auto) TRACE Squamous Epi Cells Auto 3 Urine Mucus (Auto) FEW Urine Ascorbic Acid NEGATIVE Critical Laboratory Results Reviewed: No Critical Results - Radiology Results Critical Radiology Results Reviewed: No Critical Results Discharge - Discharge Clinical Impression: Colitis Diarrhea Qualifiers: Diarrhea type: unspecified type Qualified Code(s): R19.7 - Diarrhea, unspecified Condition: Stable Disposition: HOME, SELF-CARE Instructions: Abdominal Pain ([facility]) Additional Instructions: Return immediately for any new or worsening symptoms: Fever, vomiting, blood in stool or any concerning new symptoms Followup with your primary care provider, call tomorrow to make a followup appointment Obtain stool specimen and present to lab for additional testing DIARRHEA, NON-SPECIFIC: Diarrhea means frequent, watery stools. There are many causes. Any problem that keeps the intestinal tract from absorbing water from the stool can lead to diarrhea. A sudden new diarrhea problem is usually caused by a virus, food sensitivity, toxic bacteria, or drugs. In this case, we expect the problem to go away soon. Testing is done only if you seem seriously ill from the diarrhea. If you have chronic diarrhea, or diarrhea that keeps coming back, we need to find out why. Chronic diarrhea can be due to inflammation of the bowels such as Crohn's disease or ulcerative colitis, food sensitivity such as intolerance to lactose or wheat protein, irritable bowel syndrome, and other problems. If your diarrhea is a significant problem but it's not clear why you have it, we'll refer you to a specialist for further testing. During an episode of diarrhea, drink small amounts (two to six ounces) of clear liquids (soft drinks, sport drinks, herb teas, broth, etc). Take fluids frequently to prevent dehydration. It's usually not a problem to take mild anti- diarrhea medication such as Kaopectate or Pepto-Bismol. As the diarrhea eases, advance to small amounts of bland food (mashed potato, toast) for 24 hours. Call the physician if blood appears in your vomit or stool, if vomiting lasts longer than 24 hours, if the abdominal pain worsens or becomes localized to one area, if you develop high fever, or if you become lightheaded and weak. ANTINAUSEA MEDICATION: You have been given a medication to suppress nausea and vomiting. This type of medication can be given as a shot, pill, or suppository. It will usually last for many hours. Pills and shots usually last six to eight hours. For the typical illness, only one or two doses of the medication may be necessary. Mild lightheadedness may occur. This type of medicine can cause drowsiness. Do not drive or operate dangerous machinery while under its influence. Do not mix with alcohol. See your doctor at once if you have muscle spasms or tightness, or uncontrollable motions (particularly of the neck, mouth, or jaw). Persistent vomiting or severe lightheadedness should also be evaluated by the physician. PRESCRIBED ANTIDIARRHEAL MEDICATION: Your doctor has prescribed antidiarrhea medication for you. While the usual treatment for diarrhea is a clear liquid diet to rest the bowels, an antidiarrheal medicine may allow you to be more active and comfortable while you recover. This medication can make you drowsy. Do not drive or operate machinery while under its influence. Do not combine with alcohol. Prescription antidiarrhea medicine can cause dry mouth. Occasionally, it can make you unable to pass your urine. Do not exceed the prescribed dosage. Severe abdominal pains, lightheadedness, bloody stool, or fever indicate that your disease is worsening. If these occur, stop the medication and see your doctor at once. FOLLOW-UP CARE: If you have been referred to a physician for follow-up care, call the physicians office for an appointment as you were instructed or within the next two days. If you experience worsening or a significant change in your symptoms, notify the physician immediately or return to the Emergency Department at any time for re-evaluation. Prescriptions: Ciprofloxacin HCl [Cipro 500 mg Tablet] 500 mg PO BID #20 tablet Metronidazole [Flagyl 500 mg Tablet] 500 mg PO TID #30 tablet Promethazine HCl [Phenergan 25 mg Tablet] 25 mg PO Q6H PRN #10 tablet PRN Reason: Forms: Follow-Up Laboratory Testing, Return to Work Referrals: FARIBA BAEZ DO [Primary Care Provider] - Follow up as needed
== END 2020-07-09 10:15 | disposition home or self-care (01) ==
LOC: ER 21:22
DX: K52.9 Noninfective gastroenteritis and colitis, unspecified (principal); R10.30 Lower abdominal pain, unspecified; R11.0 Nausea; F17.200 Nicotine dependence, unspecified, uncomplicated
CPT/HCPCS: 36415; 74177; 80053; 81001; 83690; 84703; 85025; 99285